=== PATIENT | female | born 1960 | race Asian ===

== ENCOUNTER 2017-06-13 19:48 | Emergency (ER) | payer MEDICAID ==
[~2017-06-13] VITALS: Ht 157.5 cm; Wt 102.0 kg
[~2017-06-13 19:48] MED LIST: CALC0.258 PO; DILT240C90 PO; FERR325T32 PO; HYDR-4069 PO; LANTUS SQ; LEVO75TA56 PO; SEVE800T8 PO; SODI650T29 PO
[2017-06-13] MEDS ORDERED: HYDROmorphone 1 mg/ml syringe IV PRN (20:15)
[2017-06-13] MEDS ORDERED: normal saline 1000ML IV soln IVB ONE (20:15)
[2017-06-13] MEDS ORDERED: ondansetron/PF 4mg/2ml inj IV ONE (20:15)
[2017-06-13 20:30] LABS: BASOPHILS % (AUTO) 0.1 % (0-1); EOSINOPHILS # (AUTO) 0.2 X10'3 (0-0.9); EOSINOPHILS % (AUTO) 2.5 % (0-6); LYMPHOCYTES # (AUTO) 0.7 X10'3 (1.1-4.8); LYMPHOCYTES % (AUTO) 7.3 % (21-51); MEAN CORPUSCULAR HEMOGLOBIN 25.9 PG (27.0-31.0); MEAN CORPUSCULAR HGB CONC 33.4 % (33.0-36.5); MEAN CORPUSCULAR VOLUME 77.4 FL (78-98); MEAN PLATELET VOLUME 6.2 FL (7.4-10.4); MONOCYTES # (AUTO) 0.4 X10'3 (0-0.9); MONOCYTES % (AUTO) 4.3 % (2-12); NEUTROPHILS # (AUTO) 8.5 X10'3 (1.8-7.7); NEUTROPHILS % (AUTO) 85.8 % (42-75); PLATELET COUNT 198 X10'3 (140-440); RED BLOOD COUNT 3.48 X10'6 (4.20-5.60); RED CELL DISTRIBUTION WIDTH 13.8 % (11.5-14.5); WHITE BLOOD COUNT 9.9 X10'3 (4.5-11.0)
[2017-06-13] MEDS ORDERED: HYDROmorphone 2mg/ml vial IV PRN (20:35)
[2017-06-13 20:46] LABS: ALANINE AMINOTRANSFERASE 16 U/L (12-78); ALBUMIN 3.2 G/DL (3.4-5.0); ALBUMIN/GLOBULIN RATIO 0.8 (1.1-1.5); ALKALINE PHOSPHATASE 67 IU/L (46-116); ANION GAP 15 (8-16); ASPARTATE AMINO TRANSFERASE 7 U/L (10-37); BILIRUBIN,TOTAL 0.3 MG/DL (0.1-1.0); BLOOD UREA NITROGEN 94 MG/DL (7-18); BUN/CREATININE RATIO 15.7 (6.6-38.0); CALCIUM 8.2 MG/DL (8.5-10.1); CHLORIDE 105 MMOL/L (99-107); GLUCOSE 212 MG/DL (70-104); LIPASE 114 U/L (73-393); POTASSIUM 4.6 MMOL/L (3.5-5.1); SODIUM 139 MMOL/L (135-145); TOTAL CARBON DIOXIDE 18.6 MMOL/L (24-32); TOTAL PROTEIN 7.3 G/DL (6.4-8.2); eGFR 7 ML/MIN
[2017-06-13] MEDS ORDERED: CefTRIAXone 2gm/NS 100ml IVPB 100 ML IV ONE (21:05)
[2017-06-13 21:44] LABS: CLARITY,URINE CLEAR (Clear); COLOR,URINE YELLOW (Yellow); GLUCOSE, URINE 100 mg/dl (Neg); KETONES,URINE NEGATIVE (Neg); LEUKOCYTE ESTERASE ,URINE SMALL (Neg); NITRITES, URINE NEGATIVE (Neg); OCCULT BLOOD,URINE TRACE-INTACT (Neg); PROTEIN,URINE 30 mg/dl (Neg); UA COLLECTION TYPE CLN CATCH MIDSTREAM; UROBILINOGEN,URINE 0.2 E.U/dL (0.2-1.0)
[2017-06-13 21:49] LABS: BACTERIA,URINE FEW /HPF (Neg); RBC,URINE 0-2 /HPF (0-2); SQUAMOUS EPITHELIAL CELL,UR MODERATE /LPF (FEW)
[2017-06-13] MEDS ORDERED: ACET-1 PO (22:13)
[2017-06-13] MEDS ORDERED: CEPH500C5 PO (22:13)
[2017-06-13] MEDS ORDERED: ONDA4TAB12 PO (22:13)
[2017-06-13 22:33] VITALS: BP 144/78
== END 2017-06-13 22:35 | disposition home or self-care (01) ==
LOC: ER 19:49
DX: N39.0 Urinary tract infection, site not specified (principal); I10 Essential (primary) hypertension; I12.9 Hypertensive chronic kidney disease with stage 1 through stage 4 chronic kidney disease, or unspecified chronic kidney disease; E11.22 Type 2 diabetes mellitus with diabetic chronic kidney disease; N18.9 Chronic kidney disease, unspecified; Z77.22 Contact with and (suspected) exposure to environmental tobacco smoke (acute) (chronic)
CPT/HCPCS: 36415; 74176; 80053; 81001; 83690; 85025; 87088; 96374; 96375; 99285; J1170; J2405; J7030; J0696

== ENCOUNTER 2018-03-31 20:15 | Inpatient (IN) | payer MEDICAID ==
[~2018-03-31] VITALS: Ht 157.5 cm; Wt 102.3 kg
[~2018-03-31 20:15] MED LIST changes: +ACET-1 PO; +CEPH500C5 PO; +CYCL-1 PO; +LIDO700A32 TOP; +ONDA4TAB12 PO
[2018-03-31 21:05] LABS: BASOPHILS % (AUTO) 0.2 % (0-1); EOSINOPHILS # (AUTO) 0.2 X10'3 (0-0.9); EOSINOPHILS % (AUTO) 1.9 % (0-6); HEMATOCRIT 29.1 % (35.0-45.0); HEMOGLOBIN 9.3 g/dl (12.0-16.0); LYMPHOCYTES # (AUTO) 0.5 X10'3 (1.1-4.8); LYMPHOCYTES % (AUTO) 4.7 % (21-51); MEAN CORPUSCULAR HEMOGLOBIN 25.5 PG (27.0-31.0); MEAN CORPUSCULAR VOLUME 79.8 FL (78-98); MEAN PLATELET VOLUME 6.3 FL (7.4-10.4); MONOCYTES # (AUTO) 0.7 X10'3 (0-0.9); MONOCYTES % (AUTO) 6.6 % (2-12); NEUTROPHILS # (AUTO) 8.8 X10'3 (1.8-7.7); NEUTROPHILS % (AUTO) 86.6 % (42-75); PLATELET COUNT 197 X10'3 (140-440); RED BLOOD COUNT 3.64 X10'6 (4.20-5.60); RED CELL DISTRIBUTION WIDTH 14.7 % (11.5-14.5); WHITE BLOOD COUNT 10.1 X10'3 (4.5-11.0)
[2018-03-31 21:14] LABS: URINE HCG NEGATIVE (NEG)
[2018-03-31 21:15] LABS: COLOR,URINE STRAW (Yellow); GLUCOSE, URINE 100 mg/dl (Neg); KETONES,URINE NEGATIVE (Neg); LEUKOCYTE ESTERASE ,URINE SMALL (Neg); NITRITES, URINE NEGATIVE (Neg); OCCULT BLOOD,URINE MODERATE (Neg); PROTEIN,URINE 30 mg/dl (Neg); UROBILINOGEN,URINE 0.2 E.U/dL (0.2-1.0)
[2018-03-31 21:19] LABS: INR 1.1 INR; PROTHROMBIN TIME 11.2 SECONDS (9.0-12.0)
[2018-03-31 21:21] LABS: ALANINE AMINOTRANSFERASE 15 U/L (12-78); ALBUMIN 3.3 G/DL (3.4-5.0); ALBUMIN/GLOBULIN RATIO 0.8 (1.1-1.5); ALKALINE PHOSPHATASE 51 IU/L (46-116); ANION GAP 15 (8-16); ASPARTATE AMINO TRANSFERASE 10 U/L (10-37); BILIRUBIN,TOTAL 0.4 MG/DL (0.1-1.0); BLOOD UREA NITROGEN 81 MG/DL (7-18); BUN/CREATININE RATIO 10.8 (6.6-38.0); CALCIUM 9.7 MG/DL (8.5-10.1); CHLORIDE 100 MMOL/L (99-107); CREATININE 7.47 MG/DL (0.40-0.90); GLUCOSE 143 MG/DL (70-104); LIPASE 87 U/L (73-393); SODIUM 136 MMOL/L (135-145); TOTAL CARBON DIOXIDE 20.6 MMOL/L (24-32); TOTAL PROTEIN 7.7 G/DL (6.4-8.2); eGFR 6 ML/MIN
[2018-03-31 21:38] LABS: CLARITY,URINE SLIGHTLY CLOUDY (Clear); UA COLLECTION TYPE CLN CATCH MIDSTREAM
[2018-03-31 21:44] LABS: MAGNESIUM 1.7 MG/DL (1.5-2.4); PHOSPHORUS 6.7 MG/DL (2.3-4.5)
[2018-03-31 21:47] LABS: SQUAMOUS EPITHELIAL CELL,UR MODERATE /LPF (FEW)
[2018-03-31 21:48] LABS: BACTERIA,URINE FEW /HPF (Neg); RBC,URINE 20-50 /HPF (0-2)
[2018-03-31] MEDS ORDERED: cephalexin 250mg capsule PO ONE (22:30)
[2018-03-31] MEDS ORDERED: CEPH250T PO (22:36)
[2018-03-31] MEDS ORDERED: CefTRIAXone/D5W-Rocephin 1gm 50 ML IV ONE (22:40)
[2018-03-31] MEDS ORDERED: MESSAGE TO PHARMACY PO ONE (23:35)
[2018-03-31] MEDS ORDERED: cyclobenzaprine 10mg tablet PO PRN (23:35)
[2018-03-31] MEDS ORDERED: dextrose ORAL solution 15 GM/59 ML bottle PO PRN ×2 (23:35)
[2018-03-31] MEDS ORDERED: mag hydrox/Alum hydrox/simeth 30ml oral suspension PO PRN (23:35)
[2018-03-31] MEDS ORDERED: glucagon, human recombinant 1mg kit SUBCUT PRN (23:35)
[2018-03-31] MEDS ORDERED: acetaminophen 325mg tablet PO PRN ×2 (23:35)
[2018-03-31] MEDS ORDERED: insulin Lispro (HumaLOG) vial - multi-dose SQ SCH (23:35)
[2018-03-31] MEDS ORDERED: ondansetron/PF 4mg/2ml inj IV PRN (23:35)
[2018-03-31] MEDS ORDERED: magnesium hydroxide 30ml (MOM) UD suspension PO PRN (23:35)
[2018-03-31] MEDS ORDERED: dextrose 50%-water 50ml dispensing syringe IV PRN ×2 (23:35)
[2018-04-01 00:01] LABS: HEMOGLOBIN A1C 5.9 % (4.5-6.2)
[2018-04-01 00:05] VITALS: BP 161/78
[2018-04-01] MEDS: normal saline 1000ml 1,000 ML IV SCH ×3 (00:21→21:23)
[2018-04-01] MEDS: HYDROcodone/acetaminophen 5mg/325mg tablet PO PRN ×2 (00:22→08:34)
[2018-04-01 05:32] LABS: BASOPHILS % (AUTO) 0.1 % (0-1); EOSINOPHILS # (AUTO) 0.1 X10'3 (0-0.9); EOSINOPHILS % (AUTO) 0.8 % (0-6); HEMATOCRIT 25.4 % (35.0-45.0); HEMOGLOBIN 8.3 g/dl (12.0-16.0); LYMPHOCYTES # (AUTO) 0.8 X10'3 (1.1-4.8); LYMPHOCYTES % (AUTO) 8.6 % (21-51); MEAN CORPUSCULAR HEMOGLOBIN 25.9 PG (27.0-31.0); MEAN CORPUSCULAR HGB CONC 32.8 % (33.0-36.5); MEAN CORPUSCULAR VOLUME 78.8 FL (78-98); MEAN PLATELET VOLUME 6.8 FL (7.4-10.4); MONOCYTES # (AUTO) 0.7 X10'3 (0-0.9); MONOCYTES % (AUTO) 7.3 % (2-12); NEUTROPHILS # (AUTO) 7.8 X10'3 (1.8-7.7); NEUTROPHILS % (AUTO) 83.2 % (42-75); PLATELET COUNT 171 X10'3 (140-440); RED BLOOD COUNT 3.22 X10'6 (4.20-5.60); RED CELL DISTRIBUTION WIDTH 14.6 % (11.5-14.5); WHITE BLOOD COUNT 9.3 X10'3 (4.5-11.0)
[2018-04-01 05:43] LABS: ALBUMIN 2.9 G/DL (3.4-5.0); ANION GAP 15 (8-16); BLOOD UREA NITROGEN 80 MG/DL (7-18); BUN/CREATININE RATIO 10.6 (6.6-38.0); CALCIUM 9.2 MG/DL (8.5-10.1); CHLORIDE 102 MMOL/L (99-107); CREATININE 7.58 MG/DL (0.40-0.90); GLUCOSE 113 MG/DL (70-104); POTASSIUM 4.9 MMOL/L (3.5-5.1); SODIUM 135 MMOL/L (135-145); TOTAL CARBON DIOXIDE 17.9 MMOL/L (24-32); eGFR 6 ML/MIN
[2018-04-01 07:30] VITALS: BP 148/85
[2018-04-01] MEDS ORDERED: LIDOcaine 5% patch TP SCH (08:00)
[2018-04-01] MEDS ORDERED: calcitriol 0.25mcg capsule PO SCH (08:00)
[2018-04-01] MEDS: CefTRIAXone/D5W-Rocephin 1gm 50 ML IV SCH (08:26)
[2018-04-01] MEDS: diltiazem CD 120mg capsule (once-daily) PO SCH (08:32)
[2018-04-01] MEDS: hydrALAZINE 25 MG tablet PO SCH ×2 (08:32→21:36)
[2018-04-01] MEDS: levoTHYROXINE 75mcg tablet PO SCH (08:32)
[2018-04-01] MEDS: sodium bicarbonate 650mg tablet PO SCH ×3 (08:33→21:36)
[2018-04-01] MEDS: sevelamer carbonate 800mg tablet PO SCH ×3 (08:33→18:38)
[2018-04-01] MEDS: ferrous sulfate 325mg tablet PO SCH ×2 (08:33→21:36)
[2018-04-01 14:10] VITALS: BP 128/57
[2018-04-01 20:00] VITALS: BP 159/62
[2018-04-01] MEDS ORDERED: insulin glargine (Lantus) pen - multi-dose SQ SCH (21:00)
[2018-04-01] MEDS: lactobacillus rhamnosus 10,000 MMU CELLS/CAPSULE PO SCH (21:36)
[2018-04-02] VITALS: BP 147/69
[2018-04-02] MEDS: normal saline 1000ml 1,000 ML IV SCH ×2 (05:31→08:57)
[2018-04-02 05:52] LABS: BASOPHILS % (AUTO) 0.1 % (0-1); EOSINOPHILS # (AUTO) 0.1 X10'3 (0-0.9); EOSINOPHILS % (AUTO) 1.3 % (0-6); HEMATOCRIT 23.7 % (35.0-45.0); HEMOGLOBIN 7.6 g/dl (12.0-16.0); LYMPHOCYTES # (AUTO) 0.7 X10'3 (1.1-4.8); LYMPHOCYTES % (AUTO) 9.8 % (21-51); MEAN CORPUSCULAR HEMOGLOBIN 25.4 PG (27.0-31.0); MEAN CORPUSCULAR HGB CONC 32.3 % (33.0-36.5); MEAN CORPUSCULAR VOLUME 78.5 FL (78-98); MEAN PLATELET VOLUME 6.7 FL (7.4-10.4); MONOCYTES # (AUTO) 0.8 X10'3 (0-0.9); NEUTROPHILS # (AUTO) 5.6 X10'3 (1.8-7.7); NEUTROPHILS % (AUTO) 77.8 % (42-75); PLATELET COUNT 153 X10'3 (140-440); RED BLOOD COUNT 3.01 X10'6 (4.20-5.60); RED CELL DISTRIBUTION WIDTH 14.5 % (11.5-14.5); WHITE BLOOD COUNT 7.2 X10'3 (4.5-11.0)
[2018-04-02 06:03] LABS: ALBUMIN 2.5 G/DL (3.4-5.0); ANION GAP 15 (8-16); BLOOD UREA NITROGEN 74 MG/DL (7-18); CALCIUM 8.4 MG/DL (8.5-10.1); CHLORIDE 103 MMOL/L (99-107); GLUCOSE 101 MG/DL (70-104); POTASSIUM 4.3 MMOL/L (3.5-5.1); SODIUM 137 MMOL/L (135-145); TOTAL CARBON DIOXIDE 18.8 MMOL/L (24-32); eGFR 6 ML/MIN
[2018-04-02 07:00] VITALS: BP 156/71
[2018-04-02] MEDS: lactobacillus rhamnosus 10,000 MMU CELLS/CAPSULE PO SCH (08:52)
[2018-04-02] MEDS: diltiazem CD 120mg capsule (once-daily) PO SCH (08:52)
[2018-04-02] MEDS: ferrous sulfate 325mg tablet PO SCH (08:52)
[2018-04-02] MEDS: hydrALAZINE 25 MG tablet PO SCH (08:52)
[2018-04-02] MEDS: sevelamer carbonate 800mg tablet PO SCH ×2 (08:53→14:24)
[2018-04-02] MEDS: sodium bicarbonate 650mg tablet PO SCH ×2 (08:53→14:24)
[2018-04-02] MEDS: levoTHYROXINE 75mcg tablet PO SCH (08:53)
[2018-04-02] MEDS: CefTRIAXone/D5W-Rocephin 1gm 50 ML IV SCH (08:55)
[2018-04-02 11:00] VITALS: BP 132/58
[2018-04-02] MEDS ORDERED: epoetin 20,000 units/ml inj SQ ONE (12:10)
== END 2018-04-02 17:45 | disposition home health service (06) | DRG 463 ==
LOC: ER 20:16 → ED HOLD 23:31 → SUR 3N 23:59
PROVIDERS: ADMIT Hospitalist; ATTEND Family Medicine
DX: N10 Acute pyelonephritis (principal); E11.22 Type 2 diabetes mellitus with diabetic chronic kidney disease; I12.0 Hypertensive chronic kidney disease with stage 5 chronic kidney disease or end stage renal disease; D64.9 Anemia, unspecified; N18.6 End stage renal disease; Q61.3 Polycystic kidney, unspecified; Z23 Encounter for immunization; Z98.51 Tubal ligation status; Z79.899 Other long term (current) drug therapy; Z79.4 Long term (current) use of insulin
CPT/HCPCS: 36415; 74176; 80048; 80053; 81001; 81025; 82948; 83036; 83690; 83735; 84100; 84443; 85025; 85610; 87070; 87088; 96374; 99285; G0378; J0696; J0885; J1815; J7030; Q2037

== ENCOUNTER 2018-06-20 13:00 | Emergency (ER) | payer MEDICAID ==
[~2018-06-20] VITALS: Ht 157.5 cm; Wt 99.8 kg
[~2018-06-20 13:00] MED LIST changes: -CEPH500C5 PO
[2018-06-20 13:01] VITALS: BP 181/79
[2018-06-20] MEDS ORDERED: GABA-532 PO (13:25)
== END 2018-06-20 13:36 | disposition home or self-care (01) ==
LOC: ER 13:01
DX: I80.3 Phlebitis and thrombophlebitis of lower extremities, unspecified (principal); I12.0 Hypertensive chronic kidney disease with stage 5 chronic kidney disease or end stage renal disease; E11.22 Type 2 diabetes mellitus with diabetic chronic kidney disease; N18.6 End stage renal disease; Z99.2 Dependence on renal dialysis; Z98.51 Tubal ligation status
CPT/HCPCS: 82948; 99283

== ENCOUNTER 2018-08-18 17:50 | Inpatient (IN) | payer MEDICAID | END 2018-08-25 14:55 | disposition home or self-care (01) | LOC: ER 17:50 → PCU 3S 08-19 08:52 → ED HOLD 21:30 ==

== ENCOUNTER 2018-12-21 19:00 | Emergency (ER) | payer MEDICAID ==
[~2018-12-21] VITALS: Ht 157.5 cm; Wt 99.2 kg
[~2018-12-21 19:00] MED LIST changes: -ACET-1 PO; -CYCL-1 PO; +DILT120T4 PO; -DILT240C90 PO; -LIDO700A32 TOP; -ONDA4TAB12 PO
[2018-12-21 19:36] LABS: BASOPHILS % (AUTO) 0.3 % (0-1); EOSINOPHILS # (AUTO) 0.1 X10'3 (0-0.9); EOSINOPHILS % (AUTO) 1.2 % (0-6); HEMATOCRIT 39.4 % (35.0-45.0); LYMPHOCYTES % (AUTO) 9.8 % (21-51); MEAN CORPUSCULAR HEMOGLOBIN 26.6 PG (27.0-31.0); MEAN CORPUSCULAR HGB CONC 32.9 g/dL (33.0-36.5); MEAN CORPUSCULAR VOLUME 80.8 FL (78-98); MEAN PLATELET VOLUME 6.6 FL (7.4-10.4); MONOCYTES # (AUTO) 0.5 X10'3 (0-0.9); MONOCYTES % (AUTO) 5.3 % (2-12); NEUTROPHILS # (AUTO) 8.4 X10'3 (1.8-7.7); NEUTROPHILS % (AUTO) 83.4 % (42-75); PLATELET COUNT 217 X10'3 (140-440); RED BLOOD COUNT 4.88 X10'6 (4.20-5.60); RED CELL DISTRIBUTION WIDTH 15.1 % (11.5-14.5); WHITE BLOOD COUNT 10.1 X10'3 (4.5-11.0)
[2018-12-21 19:39] LABS: URINE HCG NEGATIVE (NEG)
[2018-12-21 19:43] LABS: CLARITY,URINE CLEAR (Clear); COLOR,URINE YELLOW (Yellow); GLUCOSE, URINE 100 mg/dl (Neg); KETONES,URINE NEGATIVE (Neg); LEUKOCYTE ESTERASE ,URINE SMALL (Neg); NITRITES, URINE NEGATIVE (Neg); OCCULT BLOOD,URINE SMALL (Neg); PROTEIN,URINE 30 mg/dl (Neg); UROBILINOGEN,URINE 0.2 E.U/dL (0.2-1.0)
[2018-12-21 19:44] LABS: UA COLLECTION TYPE CLN CATCH MIDSTREAM
[2018-12-21 19:51] LABS: ALANINE AMINOTRANSFERASE 35 U/L (12-78); ALBUMIN 3.4 G/DL (3.4-5.0); ALBUMIN/GLOBULIN RATIO 0.7 (1.1-1.5); ALKALINE PHOSPHATASE 120 IU/L (46-116); ANION GAP 8 (8-16); ASPARTATE AMINO TRANSFERASE 21 U/L (10-37); BACTERIA,URINE FEW /HPF (Neg); BILIRUBIN,TOTAL 0.6 MG/DL (0.1-1.0); BLOOD UREA NITROGEN 18 MG/DL (7-18); BUN/CREATININE RATIO 5.8 (6.6-38.0); CALCIUM 9.3 MG/DL (8.5-10.1); CHLORIDE 96 MMOL/L (99-107); CREATININE 3.11 MG/DL (0.40-0.90); GLUCOSE 134 MG/DL (70-104); MUCUS STRANDS NONE SEEN /LPF (Neg); RBC,URINE 0-2 /HPF (0-2); RENAL CELLS, URINE FEW /HPF; SODIUM 138 MMOL/L (135-145); SQUAMOUS EPITHELIAL CELL,UR MANY /LPF (FEW); TOTAL CARBON DIOXIDE 33.6 MMOL/L (24-32); TOTAL PROTEIN 8.4 G/DL (6.4-8.2); eGFR 15 ML/MIN
--- NOTE | 2018-12-21 19:54 | NUR ---
LAB REPORTS UA REJECTED FOR CULTURE.
[2018-12-21] MEDS ORDERED: ondansetron 4mg rapidly disintigrating tab PO ONE (21:10)
[2018-12-21] MEDS ORDERED: HYDROcodone/acetaminophen 5mg/325mg tablet PO ONE (21:10)
--- NOTE | 2018-12-21 21:15 | NUR ---
pt going to ct now
[2018-12-21 22:48] VITALS: BP 104/56
[2018-12-22 01:06] LABS: CLARITY,URINE SLIGHTLY CLOUDY (Clear); COLOR,URINE YELLOW (Yellow); GLUCOSE, URINE 100 mg/dl (Neg); KETONES,URINE NEGATIVE (Neg); LEUKOCYTE ESTERASE ,URINE MODERATE (Neg); NITRITES, URINE NEGATIVE (Neg); OCCULT BLOOD,URINE SMALL (Neg); PH,URINE 8.5 (4.8-8.0); PROTEIN,URINE 100 mg/dl (Neg); UROBILINOGEN,URINE 0.2 E.U/dL (0.2-1.0)
[2018-12-22 01:18] LABS: BACTERIA,URINE 1+ /HPF (Neg); MUCUS STRANDS NONE SEEN /LPF (Neg); RBC,URINE 0-2 /HPF (0-2); RENAL CELLS, URINE FEW /HPF; SQUAMOUS EPITHELIAL CELL,UR MANY /LPF (FEW)
--- NOTE | 2018-12-22 01:18 | NUR ---
Rigo is the daughter whose cell phone number is [phone]
[2018-12-22 01:19] LABS: UA COLLECTION TYPE CLN CATCH MIDSTREAM
== END 2018-12-22 01:18 | disposition home or self-care (01) ==
LOC: ER 19:00
DX: R10.32 Left lower quadrant pain (principal); R42 Dizziness and giddiness; I12.9 Hypertensive chronic kidney disease with stage 1 through stage 4 chronic kidney disease, or unspecified chronic kidney disease; E11.22 Type 2 diabetes mellitus with diabetic chronic kidney disease; N18.9 Chronic kidney disease, unspecified; Z98.51 Tubal ligation status; Z98.890 Other specified postprocedural states; Z79.899 Other long term (current) drug therapy; Z79.4 Long term (current) use of insulin; Z99.2 Dependence on renal dialysis
CPT/HCPCS: 36415; 74176; 80053; 81001; 81025; 85025; 85610; 87088; 93005; 99284; J2405

== ENCOUNTER 2019-06-07 15:11 | Emergency (ER) | payer MEDICARE, MEDICAID ==
[~2019-06-07] VITALS: Ht 157.5 cm; Wt 103.0 kg
[2019-06-07 16:40] LABS: BASOPHILS % (AUTO) 0.6 % (0-1); EOSINOPHILS # (AUTO) 0.1 X10'3 (0-0.9); EOSINOPHILS % (AUTO) 1.5 % (0-6); HEMOGLOBIN 12.6 g/dl (12.0-16.0); LYMPHOCYTES # (AUTO) 0.9 X10'3 (1.1-4.8); LYMPHOCYTES % (AUTO) 11.6 % (21-51); MEAN CORPUSCULAR HEMOGLOBIN 27.3 PG (27.0-31.0); MEAN CORPUSCULAR HGB CONC 33.2 g/dL (33.0-36.5); MEAN CORPUSCULAR VOLUME 82.1 FL (78-98); MEAN PLATELET VOLUME 6.6 FL (7.4-10.4); MONOCYTES # (AUTO) 0.4 X10'3 (0-0.9); MONOCYTES % (AUTO) 5.1 % (2-12); NEUTROPHILS # (AUTO) 6.5 X10'3 (1.8-7.7); NEUTROPHILS % (AUTO) 81.2 % (42-75); PLATELET COUNT 196 X10'3 (140-440); RED BLOOD COUNT 4.63 X10'6 (4.20-5.60); RED CELL DISTRIBUTION WIDTH 13.4 % (11.5-14.5)
[2019-06-07 17:01] LABS: ALANINE AMINOTRANSFERASE 30 U/L (12-78); ALBUMIN 3.5 G/DL (3.4-5.0); ALBUMIN/GLOBULIN RATIO 0.7 (1.1-1.5); ALKALINE PHOSPHATASE 134 IU/L (46-116); ANION GAP 10 (8-16); ASPARTATE AMINO TRANSFERASE 16 U/L (10-37); BILIRUBIN,TOTAL 0.4 MG/DL (0.1-1.0); BLOOD UREA NITROGEN 19 MG/DL (7-18); BUN/CREATININE RATIO 5.8 (6.6-38.0); CALCIUM 9.2 MG/DL (8.5-10.1); CHLORIDE 94 MMOL/L (99-107); CREATININE 3.28 MG/DL (0.40-0.90); GLUCOSE 202 MG/DL (70-104); POTASSIUM 4.4 MMOL/L (3.5-5.1); SODIUM 132 MMOL/L (135-145); TOTAL CARBON DIOXIDE 28.1 MMOL/L (24-32); TOTAL PROTEIN 8.2 G/DL (6.4-8.2); eGFR 15 ML/MIN
[2019-06-07 19:14] VITALS: BP 115/68
== END 2019-06-07 19:15 | disposition home or self-care (01) ==
LOC: ER 15:12
DX: B34.9 Viral infection, unspecified (principal); E11.22 Type 2 diabetes mellitus with diabetic chronic kidney disease; I12.0 Hypertensive chronic kidney disease with stage 5 chronic kidney disease or end stage renal disease; N18.6 End stage renal disease; Z99.2 Dependence on renal dialysis; Z98.51 Tubal ligation status; Z98.890 Other specified postprocedural states; Z79.4 Long term (current) use of insulin; Z79.899 Other long term (current) drug therapy
CPT/HCPCS: 36415; 71045; 80053; 84484; 85025; 93005; 99284

== ENCOUNTER 2019-06-29 00:09 | Emergency (ER) | payer MEDICARE, MEDICAID ==
[~2019-06-29] VITALS: Ht 157.5 cm; Wt 103.0 kg
--- NOTE | 2019-06-29 00:36 | NUR ---
PT IS A DYALSIS PT HAS FISTULA ON HER LEFT ARM SHE GOES TO [facility] Zoran Castrejon FRI
[2019-06-29 01:49] VITALS: BP 110/66
== END 2019-06-29 01:45 | disposition home or self-care (01) ==
LOC: ER 00:09
DX: K12.0 Recurrent oral aphthae (principal); I12.9 Hypertensive chronic kidney disease with stage 1 through stage 4 chronic kidney disease, or unspecified chronic kidney disease; N18.9 Chronic kidney disease, unspecified; E11.22 Type 2 diabetes mellitus with diabetic chronic kidney disease; Z98.51 Tubal ligation status; Z98.890 Other specified postprocedural states; Z79.4 Long term (current) use of insulin; Z79.899 Other long term (current) drug therapy
CPT/HCPCS: 99281

== ENCOUNTER 2020-05-09 12:23 | Emergency (ER) | payer MEDICARE, MEDICAID ==
[~2020-05-09] VITALS: Ht 157.5 cm; Wt 107.5 kg
[2020-05-09] MEDS ORDERED: famotidine 20mg tablet PO ONE (13:20)
[2020-05-09] MEDS ORDERED: mag hydrox/Alum hydrox/simeth 30ml oral suspension PO ONE (13:20)
[2020-05-09 13:31] LABS: BASOPHILS % (AUTO) 0.4 % (0-1); EOSINOPHILS # (AUTO) 0.1 X10'3 (0-0.9); EOSINOPHILS % (AUTO) 1.1 % (0-6); HEMATOCRIT 41.9 % (35.0-45.0); HEMOGLOBIN 13.7 g/dl (12.0-16.0); LYMPHOCYTES % (AUTO) 12.8 % (21-51); MEAN CORPUSCULAR HEMOGLOBIN 26.5 PG (27.0-31.0); MEAN CORPUSCULAR HGB CONC 32.6 g/dL (33.0-36.5); MEAN CORPUSCULAR VOLUME 81.2 FL (78-98); MEAN PLATELET VOLUME 6.5 FL (7.4-10.4); MONOCYTES # (AUTO) 0.4 X10'3 (0-0.9); MONOCYTES % (AUTO) 4.5 % (2-12); NEUTROPHILS # (AUTO) 6.5 X10'3 (1.8-7.7); NEUTROPHILS % (AUTO) 81.2 % (42-75); PLATELET COUNT 199 X10'3 (140-440); RED BLOOD COUNT 5.16 X10'6 (4.20-5.60); RED CELL DISTRIBUTION WIDTH 14.7 % (11.5-14.5)
[2020-05-09 13:47] LABS: ALANINE AMINOTRANSFERASE 24 U/L (12-78); ALBUMIN 3.7 G/DL (3.4-5.0); ALBUMIN/GLOBULIN RATIO 0.8 (1.1-1.5); ALKALINE PHOSPHATASE 92 IU/L (46-116); ANION GAP 10 (8-16); ASPARTATE AMINO TRANSFERASE 16 U/L (10-37); BILIRUBIN,TOTAL 0.5 MG/DL (0.1-1.0); BLOOD UREA NITROGEN 8 MG/DL (7-18); BUN/CREATININE RATIO 3.1 (6.6-38.0); CALCIUM 9.4 MG/DL (8.5-10.1); CHLORIDE 95 MMOL/L (99-107); CREATININE 2.55 MG/DL (0.40-0.90); GLUCOSE 134 MG/DL (70-104); POTASSIUM 3.7 MMOL/L (3.5-5.1); SODIUM 135 MMOL/L (135-145); TOTAL CARBON DIOXIDE 30.4 MMOL/L (24-32); TOTAL PROTEIN 8.3 G/DL (6.4-8.2); eGFR 19 ML/MIN
[2020-05-09 18:07] VITALS: BP 116/66
== END 2020-05-09 18:06 | disposition home or self-care (01) ==
LOC: ER 12:24
DX: R07.89 Other chest pain (principal); I12.0 Hypertensive chronic kidney disease with stage 5 chronic kidney disease or end stage renal disease; E11.22 Type 2 diabetes mellitus with diabetic chronic kidney disease; N18.6 End stage renal disease; Z99.2 Dependence on renal dialysis; R06.89 Other abnormalities of breathing; Z98.51 Tubal ligation status; Z79.899 Other long term (current) drug therapy
CPT/HCPCS: 36415; 71045; 80053; 83880; 84484; 85025; 93005; 99285

== ENCOUNTER 2021-07-24 18:51 | Emergency (ER) | payer MEDICARE, MEDICAID ==
[~2021-07-24] VITALS: Ht 157.5 cm; Wt 104.5 kg
[2021-07-24] MEDS ORDERED: orphenadrine citrate 60mg/2ml inj. IM ONE (19:25)
[2021-07-24] MEDS ORDERED: morphine 4 MG/ML inj SYRINge IM ONE (19:25)
[2021-07-24 20:23] LABS: CLARITY,URINE CLOUDY (Clear); COLOR,URINE YELLOW (Yellow); GLUCOSE, URINE NEGATIVE (Neg); KETONES,URINE NEGATIVE (Neg); LEUKOCYTE ESTERASE ,URINE SMALL (Neg); NITRITES, URINE NEGATIVE (Neg); OCCULT BLOOD,URINE TRACE-INTACT (Neg); PROTEIN,URINE 100 mg/dl (Neg); UROBILINOGEN,URINE 0.2 E.U/dL (0.2-1.0)
[2021-07-24 20:32] LABS: UA COLLECTION TYPE CLN CATCH MIDSTREAM
[2021-07-24 20:35] LABS: BACTERIA,URINE 3+ /HPF (Neg); MUCUS STRANDS FEW /LPF (Neg); RBC,URINE 0-2 /HPF (0-2); SQUAMOUS EPITHELIAL CELL,UR MANY /LPF (FEW)
[2021-07-24 20:37] LABS: TRANSITIONAL EPI CELLS,URINE FEW /HPF
[2021-07-24 21:24] LABS: CLARITY,URINE SLIGHTLY CLOUDY (Clear); COLOR,URINE YELLOW (Yellow); GLUCOSE, URINE NEGATIVE (Neg); KETONES,URINE NEGATIVE (Neg); LEUKOCYTE ESTERASE ,URINE SMALL (Neg); NITRITES, URINE NEGATIVE (Neg); OCCULT BLOOD,URINE TRACE-INTACT (Neg); PH,URINE 8.5 (4.8-8.0); PROTEIN,URINE 100 mg/dl (Neg); UROBILINOGEN,URINE 0.2 E.U/dL (0.2-1.0)
[2021-07-24 21:29] LABS: UA COLLECTION TYPE STRAIGHT CATH
[2021-07-24 21:33] LABS: BACTERIA,URINE 2+ /HPF (Neg); MUCUS STRANDS FEW /LPF (Neg); RBC,URINE 0-2 /HPF (0-2); SQUAMOUS EPITHELIAL CELL,UR MODERATE /LPF (FEW)
[2021-07-24 21:34] LABS: TRANSITIONAL EPI CELLS,URINE FEW /HPF
[2021-07-24] MEDS ORDERED: cephalexin 250mg capsule PO ONE (21:45)
[2021-07-24] MEDS ORDERED: CEPH-585 PO (21:53)
[2021-07-24] MEDS ORDERED: HYDR-3972 PO (21:56)
[2021-07-24 21:59] VITALS: BP 140/68
== END 2021-07-24 22:06 | disposition home or self-care (01) ==
LOC: ER 18:51
DX: M54.50 Low back pain, unspecified (principal); I12.0 Hypertensive chronic kidney disease with stage 5 chronic kidney disease or end stage renal disease; E11.22 Type 2 diabetes mellitus with diabetic chronic kidney disease; N18.6 End stage renal disease; Z99.2 Dependence on renal dialysis; Z98.51 Tubal ligation status; Z98.890 Other specified postprocedural states; Z79.899 Other long term (current) drug therapy
CPT/HCPCS: 72100; 81001; 87088; 96372; 99284; J2270; J2360

== ENCOUNTER 2023-03-26 19:08 | Emergency (ER) | payer MEDICARE, MEDICAID ==
[~2023-03-26] VITALS: Ht 157.5 cm; Wt 100.0 kg
[~2023-03-26 19:08] MED LIST changes: -CALC0.258 PO; +CLOT15CR73 TOP; -DILT120T4 PO; +DILT180C49 PO; -FERR325T32 PO; -HYDR-4069 PO; -LANTUS SQ; +LEVO50TA8 PO; -LEVO75TA56 PO; +SODI10PO PO; -SODI650T29 PO; +VIT1TABL50 PO
[2023-03-26 19:24] VITALS: TEMP 99.8
[2023-03-26 20:07] LABS: BASOPHILS % (AUTO) 0.5 % (0-1); EOSINOPHILS # (AUTO) 0.1 X10'3 (0-0.9); EOSINOPHILS % (AUTO) 1.3 % (0-6); HEMOGLOBIN 10.1 g/dl (12.0-16.0); LYMPHOCYTES % (AUTO) 12.2 % (21-51); MEAN CORPUSCULAR HEMOGLOBIN 26.1 PG (27.0-31.0); MEAN CORPUSCULAR HGB CONC 32.5 g/dL (33.0-36.5); MEAN CORPUSCULAR VOLUME 80.3 FL (78-98); MEAN PLATELET VOLUME 6.8 FL (7.4-10.4); MONOCYTES # (AUTO) 0.8 X10'3 (0-0.9); MONOCYTES % (AUTO) 9.3 % (2-12); NEUTROPHILS # (AUTO) 6.5 X10'3 (1.8-7.7); NEUTROPHILS % (AUTO) 76.7 % (42-75); PLATELET COUNT 224 X10'3 (140-440); RED BLOOD COUNT 3.86 X10'6 (4.20-5.60); RED CELL DISTRIBUTION WIDTH 13.6 % (11.5-14.5); WHITE BLOOD COUNT 8.5 X10'3 (4.5-11.0)
[2023-03-26 20:21] LABS: ALANINE AMINOTRANSFERASE 12 U/L (12-78); ALBUMIN 2.7 G/DL (3.4-5.0); ALBUMIN/GLOBULIN RATIO 0.6 (1.1-1.5); ALKALINE PHOSPHATASE 129 IU/L (46-116); ANION GAP 6 (8-16); ASPARTATE AMINO TRANSFERASE 14 U/L (10-37); BILIRUBIN,TOTAL 0.4 MG/DL (0.1-1.0); BLOOD UREA NITROGEN 19 MG/DL (7-18); BUN/CREATININE RATIO 6.2 (10.0-20.0); CALCIUM 9.9 MG/DL (8.5-10.1); CHLORIDE 93 MMOL/L (99-107); CREATININE 3.08 MG/DL (0.40-0.90); GLUCOSE 251 MG/DL (70-104); LIPASE 19 U/L (16-77); POTASSIUM 4.1 MMOL/L (3.5-5.1); SODIUM 132 MMOL/L (135-145); TOTAL CARBON DIOXIDE 33.5 MMOL/L (24-32); TOTAL PROTEIN 7.5 G/DL (6.4-8.2); eCRCL 15 ML/MIN; eGFR 15 ML/MIN
[2023-03-26 21:33] LABS: BILIRUBIN,URINE NEGATIVE (Neg); CLARITY,URINE SLIGHTLY CLOUDY (Clear); COLOR,URINE STRAW (Yellow); GLUCOSE, URINE 100 mg/dl (Neg); KETONES,URINE NEGATIVE (Neg); LEUKOCYTE ESTERASE ,URINE SMALL (Neg); NITRITES, URINE NEGATIVE (Neg); OCCULT BLOOD,URINE SMALL (Neg); PH,URINE 8.5 (4.8-8.0); PROTEIN,URINE 100 mg/dl (Neg); UROBILINOGEN,URINE 0.2 E.U/dL (0.2-1.0)
[2023-03-26 21:36] LABS: UA COLLECTION TYPE CLN CATCH MIDSTREAM
[2023-03-26 21:49] LABS: BACTERIA,URINE 2+ /HPF (Neg); MUCUS STRANDS NONE SEEN /LPF (Neg); SQUAMOUS EPITHELIAL CELL,UR MANY /LPF (FEW); TRANSITIONAL EPI CELLS,URINE FEW /HPF
[2023-03-26] MEDS ORDERED: ondansetron/PF 4mg/2ml inj IV ONE (23:35)
[2023-03-26] MEDS ORDERED: morphine 4 MG/ML inj SYRINge IV PRN (23:35)
[2023-03-26] MEDS ORDERED: CefTRIAXone/D5W-Rocephin 1gm 50 ML IV ONE (23:35)
[2023-03-27 01:41] VITALS: BP 126/55; PULSE 79; O2SAT 93
[2023-03-27 02:34] VITALS: RESP 18
[2023-03-27] MEDS ORDERED: HYDR-3965 PO (03:07)
[2023-03-27] MEDS ORDERED: CEPH-585 PO (03:07)
--- NOTE | 2023-03-27 04:43 | NUR ---
I have reviewed and agree with all interventions, assessments performed and documented by GREG Sterling.
== END 2023-03-27 03:34 | disposition home or self-care (01) ==
LOC: ER 19:09
DX: K80.51 Calculus of bile duct without cholangitis or cholecystitis with obstruction (principal); N39.0 Urinary tract infection, site not specified; N18.9 Chronic kidney disease, unspecified; I10 Essential (primary) hypertension; E11.9 Type 2 diabetes mellitus without complications; E03.9 Hypothyroidism, unspecified
CPT/HCPCS: 36415; 74176; 76700; 80053; 81001; 83690; 85025; 96365; 96366; 96375; 99285; J0696; J2270; J2405

== ENCOUNTER 2023-04-25 19:24 | Emergency (ER) | payer MEDICARE, MEDICAID ==
[~2023-04-25] VITALS: Ht 152.4 cm; Wt 99.9 kg
[~2023-04-25 19:24] MED LIST changes: +HYDR-3965 PO
[2023-04-25 20:19] LABS: BASOPHILS % (AUTO) 0.4 % (0-1); EOSINOPHILS # (AUTO) 0.1 X10'3 (0-0.9); EOSINOPHILS % (AUTO) 1.4 % (0-6); HEMATOCRIT 30.4 % (35.0-45.0); LYMPHOCYTES # (AUTO) 1.1 X10'3 (1.1-4.8); LYMPHOCYTES % (AUTO) 12.6 % (21-51); MEAN CORPUSCULAR HEMOGLOBIN 26.8 PG (27.0-31.0); MEAN CORPUSCULAR HGB CONC 32.9 g/dL (33.0-36.5); MEAN CORPUSCULAR VOLUME 81.3 FL (78-98); MEAN PLATELET VOLUME 6.9 FL (7.4-10.4); MONOCYTES # (AUTO) 0.6 X10'3 (0-0.9); MONOCYTES % (AUTO) 6.9 % (2-12); NEUTROPHILS # (AUTO) 6.6 X10'3 (1.8-7.7); NEUTROPHILS % (AUTO) 78.7 % (42-75); PLATELET COUNT 192 X10'3 (140-440); RED BLOOD COUNT 3.73 X10'6 (4.20-5.60); RED CELL DISTRIBUTION WIDTH 15.4 % (11.5-14.5); WHITE BLOOD COUNT 8.5 X10'3 (4.5-11.0)
[2023-04-25 20:21] LABS: BILIRUBIN,URINE NEGATIVE (Neg); CLARITY,URINE CLOUDY (Clear); COLOR,URINE STRAW (Yellow); GLUCOSE, URINE 100 mg/dl (Neg); KETONES,URINE NEGATIVE (Neg); LEUKOCYTE ESTERASE ,URINE NEGATIVE (Neg); NITRITES, URINE NEGATIVE (Neg); OCCULT BLOOD,URINE SMALL (Neg); PH,URINE 8.5 (4.8-8.0); PROTEIN,URINE 100 mg/dl (Neg); UROBILINOGEN,URINE 0.2 E.U/dL (0.2-1.0)
[2023-04-25 20:28] LABS: UA COLLECTION TYPE CLN CATCH MIDSTREAM
[2023-04-25 20:29] LABS: SQUAMOUS EPITHELIAL CELL,UR MANY /LPF (FEW); TRANSITIONAL EPI CELLS,URINE FEW /HPF
[2023-04-25 20:30] LABS: BACTERIA,URINE 3+ /HPF (Neg)
[2023-04-25 20:47] LABS: ALANINE AMINOTRANSFERASE 14 U/L (12-78); ALBUMIN 2.9 G/DL (3.4-5.0); ALBUMIN/GLOBULIN RATIO 0.6 (1.1-1.5); ALKALINE PHOSPHATASE 97 IU/L (46-116); ANION GAP 7 (8-16); ASPARTATE AMINO TRANSFERASE 12 U/L (10-37); BILIRUBIN,TOTAL 0.4 MG/DL (0.1-1.0); BLOOD UREA NITROGEN 16 MG/DL (7-18); BUN/CREATININE RATIO 5.2 (10.0-20.0); CALCIUM 9.6 MG/DL (8.5-10.1); CHLORIDE 94 MMOL/L (99-107); CREATININE 3.09 MG/DL (0.40-0.90); GLUCOSE 239 MG/DL (70-104); LIPASE 25 U/L (16-77); SODIUM 133 MMOL/L (135-145); TOTAL CARBON DIOXIDE 32.3 MMOL/L (24-32); TOTAL PROTEIN 7.8 G/DL (6.4-8.2); eCRCL 14 ML/MIN; eGFR 15 ML/MIN
[2023-04-25] MEDS ORDERED: FOSFOMYCIN TROMETHAMINE 3 GM PACKET PO ONE (21:05)
[2023-04-25 21:29] VITALS: BP 160/71; PULSE 84; RESP 16; TEMP 98.4; O2SAT 98
== END 2023-04-25 21:30 | disposition home or self-care (01) ==
LOC: ER 19:25
DX: N39.0 Urinary tract infection, site not specified (principal); I12.0 Hypertensive chronic kidney disease with stage 5 chronic kidney disease or end stage renal disease; N18.6 End stage renal disease; Z99.2 Dependence on renal dialysis; Z98.51 Tubal ligation status; Z98.890 Other specified postprocedural states; Z79.899 Other long term (current) drug therapy
CPT/HCPCS: 36415; 80053; 81001; 83605; 83690; 83735; 84145; 85025; 99283

== ENCOUNTER 2023-05-26 15:18 | Emergency (ER) | payer MEDICARE, MEDICAID ==
[~2023-05-26] VITALS: Ht 157.5 cm; Wt 99.1 kg
[~2023-05-26 15:18] MED LIST changes: -HYDR-3965 PO
[2023-05-26 15:44] VITALS: BP 151/53; PULSE 61; RESP 16; TEMP 98; O2SAT 97
== END 2023-05-26 21:11 | disposition left against medical advice (07) ==
LOC: ER 15:19
DX: R10.2 Pelvic and perineal pain (principal); Z53.21 Procedure and treatment not carried out due to patient leaving prior to being seen by health care provider
CPT/HCPCS: 99281

== ENCOUNTER 2023-07-02 12:27 | Outpatient (CLI) | payer MEDICARE, MEDICAID, OTHER ==
[~2023-07-02 12:27] MED LIST changes: +BISA10SU11 RC; -CLOT15CR73 TOP; +D50SYR IV; +DOCU100C40 PO; +FOLI1CAP7 PO; +GLUC1KIT2 SUBCUT; +HYDR-3973 PO; +INSU100V11 SQ; +LANTUS SQ; +LINE600T14 PO; +PHO667C PO; -VIT1TABL50 PO
== END 2023-07-02 23:59 | disposition home or self-care (01) ==
LOC: RAD 12:27
PROVIDERS: ATTEND Internal Medicine
DX: K57.30 Diverticulosis of large intestine without perforation or abscess without bleeding (principal); K80.20 Calculus of gallbladder without cholecystitis without obstruction; K76.89 Other specified diseases of liver; J90 Pleural effusion, not elsewhere classified; E01.0 Iodine-deficiency related diffuse (endemic) goiter; R16.0 Hepatomegaly, not elsewhere classified; N28.1 Cyst of kidney, acquired; I70.0 Atherosclerosis of aorta; R93.89 Abnormal findings on diagnostic imaging of other specified body structures
CPT/HCPCS: 74176

== ENCOUNTER 2023-07-27 12:55 | Inpatient (IN) | payer MEDICARE, MEDICAID, OTHER ==
[~2023-07-27] VITALS: Ht 157.5 cm; Wt 98.1 kg
[~2023-07-27 12:55] MED LIST changes: -HYDR-3973 PO; +diltiazem-NS 100mg/100ml 100 ML IV PRN
[2023-07-27] MEDS: heparin 10,000 units/1 ML INJ IV ONE (13:30)
[2023-07-27] MEDS: diltiazem 5mg/ml 5ml inj. IV ONE (13:47)
[2023-07-27] MEDS: diltiazem-NS 100mg/100ml 100 ML IV PRN (13:48)
[2023-07-27 14:09] LABS: BASOPHILS # (AUTO) 0.1 X10'3 (0-0.2); BASOPHILS % (AUTO) 0.9 % (0-1); EOSINOPHILS # (AUTO) 0.1 X10'3 (0-0.9); EOSINOPHILS % (AUTO) 1.5 % (0-6); HEMATOCRIT 36.6 % (35.0-45.0); HEMOGLOBIN 11.2 g/dl (12.0-16.0); LYMPHOCYTES # (AUTO) 1.2 X10'3 (1.1-4.8); LYMPHOCYTES % (AUTO) 14.7 % (21-51); MEAN CORPUSCULAR HEMOGLOBIN 25.8 PG (27.0-31.0); MEAN CORPUSCULAR HGB CONC 30.7 g/dL (33.0-36.5); MEAN CORPUSCULAR VOLUME 84.1 FL (78-98); MEAN PLATELET VOLUME 7.5 FL (7.4-10.4); MONOCYTES # (AUTO) 0.5 X10'3 (0-0.9); MONOCYTES % (AUTO) 6.4 % (2-12); NEUTROPHILS # (AUTO) 6.3 X10'3 (1.8-7.7); NEUTROPHILS % (AUTO) 76.5 % (42-75); PLATELET COUNT 183 X10'3 (140-440); RED BLOOD COUNT 4.35 X10'6 (4.20-5.60); RED CELL DISTRIBUTION WIDTH 19.3 % (11.5-14.5); WHITE BLOOD COUNT 8.3 X10'3 (4.5-11.0)
[2023-07-27 14:23] LABS: ANION GAP 9 (8-16); BLOOD UREA NITROGEN 14 MG/DL (7-18); BUN/CREATININE RATIO 3.7 (10.0-20.0); CALCIUM 9.7 MG/DL (8.5-10.1); CHLORIDE 97 MMOL/L (99-107); CREATININE 3.78 MG/DL (0.40-0.90); GLUCOSE 125 MG/DL (70-104); POTASSIUM 3.9 MMOL/L (3.5-5.1); SODIUM 139 MMOL/L (135-145); TOTAL CARBON DIOXIDE 33.4 MMOL/L (24-32); eCRCL 13 ML/MIN; eGFR 12 ML/MIN
[2023-07-27 14:45] LABS: PLATELET ESTIMATE NORMAL
[2023-07-27 14:51] LABS: ANISOCYTOSIS 2+; POIKILOCYTOSIS FEW; STOMATOCYTES FEW
[2023-07-27 15:31] LABS: APTT 35 SECONDS (22-32); INR 1.2 INR; PROTHROMBIN TIME 12.6 SECONDS (9.0-12.0)
[2023-07-27] MEDS: amiodarone 150mg/dext, iso-os 100 ML IV ONE (16:49)
[2023-07-27] MEDS ORDERED: magnesium hydroxide 30ml (MOM) UD suspension PO PRN (17:10)
[2023-07-27] MEDS ORDERED: ondansetron/PF 4mg/2ml inj IV PRN (17:10)
[2023-07-27] MEDS ORDERED: mag hydrox/Alum hydrox/simeth 30ml oral suspension PO PRN (17:10)
[2023-07-27] MEDS: amiodarone/D5 360MG/200ML BAG 200 ML IV ONE (17:13)
[2023-07-27] MEDS ORDERED: dextrose 50%-water 50ml dispensing syringe IV PRN ×2 (17:50)
[2023-07-27] MEDS ORDERED: insulin Lispro (HumaLOG) vial - multi-dose SQ SCH (17:50)
[2023-07-27] MEDS ORDERED: DEXTROSE 15 GM of carb/4 tabs (each vial/BOTTLE has 4 tablets) PO PRN ×2 (17:50)
[2023-07-27] MEDS ORDERED: glucagon, human recombinant 1mg kit SUBCUT PRN (17:50)
[2023-07-27] MEDS: MESSAGE TO PHARMACY PO ONE (18:27)
[2023-07-27] MEDS: docusate sod 100mg capsule PO SCH (20:00)
[2023-07-27] MEDS: insulin glargine (Lantus) pen - multi-dose SQ SCH (21:00)
[2023-07-27] MEDS ORDERED: diltiazem-NS 100mg/100ml 100 ML IV PRN (21:25)
[2023-07-27] MEDS ORDERED: diltiazem-NS 100mg/100ml 100 ML IV SCH (22:10)
[2023-07-27 23:30] VITALS: BP 118/89; PULSE 132; RESP 13; TEMP 97.1; O2SAT 98
[2023-07-28] VITALS (39 sets, daily range): BP systolic 88–126; BP diastolic 49–100; PULSE 102–146; RESP 13–24; TEMP 97.1–98.1; O2SAT 94–100
[2023-07-28] MEDS: amiodarone/D5 360MG/200ML BAG 200 ML IV SCH (00:10)
[2023-07-28] MEDS: heparin, porcine 5000 units/ml vial SQ SCH (00:20)
[2023-07-28] MEDS ORDERED: diltiazem-NS 100mg/100ml 100 ML IV PRN ×3 (01:43→04:00)
[2023-07-28] MEDS: acetaminophen 325mg tablet PO PRN (01:47)
[2023-07-28] MEDS: diltiazem-NS 100mg/100ml 100 ML IV PRN (02:24)
[2023-07-28] MEDS: levoTHYROXINE 75mcg tablet PO SCH (09:03)
[2023-07-28 10:05] LABS: BASOPHILS # (AUTO) 0.1 X10'3 (0-0.2); BASOPHILS % (AUTO) 0.7 % (0-1); EOSINOPHILS # (AUTO) 0.1 X10'3 (0-0.9); EOSINOPHILS % (AUTO) 1.9 % (0-6); HEMATOCRIT 31.6 % (35.0-45.0); HEMOGLOBIN 9.8 g/dl (12.0-16.0); LYMPHOCYTES # (AUTO) 1.1 X10'3 (1.1-4.8); MEAN CORPUSCULAR HGB CONC 31.1 g/dL (33.0-36.5); MEAN CORPUSCULAR VOLUME 83.8 FL (78-98); MEAN PLATELET VOLUME 7.4 FL (7.4-10.4); MONOCYTES # (AUTO) 0.5 X10'3 (0-0.9); MONOCYTES % (AUTO) 6.3 % (2-12); NEUTROPHILS # (AUTO) 5.6 X10'3 (1.8-7.7); NEUTROPHILS % (AUTO) 76.1 % (42-75); PLATELET COUNT 150 X10'3 (140-440); RED BLOOD COUNT 3.76 X10'6 (4.20-5.60); WHITE BLOOD COUNT 7.4 X10'3 (4.5-11.0)
[2023-07-28 10:22] LABS: APTT 38 SECONDS (22-32); INR 1.2 INR
[2023-07-28 10:43] LABS: PROTHROMBIN TIME 12.7 SECONDS (9.0-12.0)
[2023-07-28 11:05] LABS: ALANINE AMINOTRANSFERASE 6 U/L (12-78); ALBUMIN 1.6 G/DL (3.4-5.0); ALBUMIN/GLOBULIN RATIO 0.4 (1.1-1.5); ALKALINE PHOSPHATASE 119 IU/L (46-116); ANION GAP 5 (8-16); ASPARTATE AMINO TRANSFERASE 16 U/L (10-37); BILIRUBIN,TOTAL 0.2 MG/DL (0.1-1.0); BLOOD UREA NITROGEN 17 MG/DL (7-18); BUN/CREATININE RATIO 3.9 (10.0-20.0); CALCIUM 9.3 MG/DL (8.5-10.1); CHLORIDE 100 MMOL/L (99-107); CREATININE 4.36 MG/DL (0.40-0.90); FREE T4 (FREE THYROXINE) 1.39 NG/DL (0.73-1.40); GLUCOSE 163 MG/DL (70-104); MAGNESIUM 1.9 MG/DL (1.5-2.4); POTASSIUM 4.2 MMOL/L (3.5-5.1); SODIUM 137 MMOL/L (135-145); THYROID STIMULATING HORMONE 2.21 ulU/ml (0.34-4.50); TOTAL CARBON DIOXIDE 31.7 MMOL/L (24-32); TOTAL PROTEIN 5.7 G/DL (6.4-8.2); eCRCL 11 ML/MIN; eGFR 10 ML/MIN
[2023-07-28] MEDS: apixaban 5mg tablet PO SCH (12:02)
[2023-07-28] MEDS: diltiazem CD 180mg cap (once-daily) PO SCH (12:02)
[2023-07-28] MEDS ORDERED: normal saline 1000ml 250 ML IV PRN (12:35)
[2023-07-28] MEDS ORDERED: normal saline 1000ml 100 ML IV PRN (12:35)
[2023-07-28] MEDS: LIDOcaine 1% (10mg/ml) 2ml vial SQ ONE (13:30)
[2023-07-28] MEDS ORDERED: digoxin 250mcg/ml 2ml ampule IV ONE (13:50)
[2023-07-28] MEDS: EPOETIN ALFA-EPBX 20,000 UNIT/ML 1 ML MDV IV ONE (16:10)
[2023-07-28] MEDS: diltiazem 30mg tablet PO SCH (19:30)
[2023-07-28] MEDS ORDERED: digoxin 250mcg/ml 2ml ampule IV SCH (20:00)
[2023-07-28] MEDS: diltiazem 30mg tablet PO ONE (22:30)
[2023-07-29] VITALS (20 sets, daily range): BP systolic 101–126; BP diastolic 51–82; PULSE 8–169; RESP 16–33; TEMP 97.5–98.3; O2SAT 90–99
[2023-07-29 07:48] LABS: BASOPHILS % (AUTO) 0.5 % (0-1); EOSINOPHILS # (AUTO) 0.1 X10'3 (0-0.9); EOSINOPHILS % (AUTO) 1.2 % (0-6); HEMATOCRIT 30.9 % (35.0-45.0); HEMOGLOBIN 9.7 g/dl (12.0-16.0); LYMPHOCYTES # (AUTO) 1.2 X10'3 (1.1-4.8); LYMPHOCYTES % (AUTO) 14.6 % (21-51); MEAN CORPUSCULAR HEMOGLOBIN 26.1 PG (27.0-31.0); MEAN CORPUSCULAR HGB CONC 31.3 g/dL (33.0-36.5); MEAN CORPUSCULAR VOLUME 83.4 FL (78-98); MEAN PLATELET VOLUME 7.6 FL (7.4-10.4); MONOCYTES # (AUTO) 0.5 X10'3 (0-0.9); NEUTROPHILS # (AUTO) 6.5 X10'3 (1.8-7.7); NEUTROPHILS % (AUTO) 77.7 % (42-75); PLATELET COUNT 162 X10'3 (140-440); RED BLOOD COUNT 3.71 X10'6 (4.20-5.60); RED CELL DISTRIBUTION WIDTH 18.6 % (11.5-14.5); WHITE BLOOD COUNT 8.3 X10'3 (4.5-11.0)
[2023-07-29 08:13] LABS: APTT 38 SECONDS (22-32); INR 1.2 INR; PROTHROMBIN TIME 12.4 SECONDS (9.0-12.0)
[2023-07-29 08:18] LABS: ALBUMIN 1.5 G/DL (3.4-5.0); ALBUMIN/GLOBULIN RATIO 0.4 (1.1-1.5); ALKALINE PHOSPHATASE 126 IU/L (46-116); ANION GAP 6 (8-16); ASPARTATE AMINO TRANSFERASE 13 U/L (10-37); BILIRUBIN,TOTAL 0.3 MG/DL (0.1-1.0); BLOOD UREA NITROGEN 10 MG/DL (7-18); BUN/CREATININE RATIO 3.4 (10.0-20.0); CALCIUM 8.5 MG/DL (8.5-10.1); CHLORIDE 102 MMOL/L (99-107); CREATININE 2.97 MG/DL (0.40-0.90); GLUCOSE 110 MG/DL (70-104); MAGNESIUM 1.9 MG/DL (1.5-2.4); PHOSPHORUS 2.6 MG/DL (2.3-4.5); SODIUM 137 MMOL/L (135-145); TOTAL PROTEIN 5.6 G/DL (6.4-8.2); eCRCL 16 ML/MIN; eGFR 16 ML/MIN
[2023-07-29 08:30] LABS: ALANINE AMINOTRANSFERASE < 6 U/L (12-78)
[2023-07-29] MEDS: diltiazem 30mg tablet PO ONE (10:01)
[2023-07-29] MEDS: fentaNYL/PF 50MCG/1 ML 2ML syringe IV ONE (11:30)
[2023-07-29] MEDS: MIDAZolam 1mg/ml 10ml vial IV ONE (11:30)
[2023-07-29] MEDS: apixaban 5mg tablet PO ONE (12:00)
[2023-07-29] MEDS: calcium acetate 667mg (PhosLO) capsule PO SCH (13:00)
[2023-07-29] MEDS ORDERED: sevelamer carbonate 800mg tablet PO SCH (13:00)
[2023-07-29] MEDS: diltiazem 30mg tablet PO SCH (13:03)
[2023-07-29] MEDS ORDERED: ondansetron 4mg rapidly disintigrating tab PO PRN (15:05)
[2023-07-29] MEDS ORDERED: heparin, porcine 5000 units/ml vial SQ SCH (16:00)
[2023-07-29] MEDS: apixaban 5mg tablet PO SCH (19:37)
[2023-07-29] MEDS: amiodarone 200mg tablet PO SCH (19:37)
[2023-07-30] VITALS (13 sets, daily range): BP systolic 97–125; BP diastolic 48–67; PULSE 70–79; RESP 13–23; TEMP 97.2–97.7; O2SAT 95–100
[2023-07-30 07:22] LABS: BASOPHILS % (AUTO) 0.6 % (0-1); EOSINOPHILS # (AUTO) 0.1 X10'3 (0-0.9); EOSINOPHILS % (AUTO) 1.9 % (0-6); HEMATOCRIT 30.2 % (35.0-45.0); HEMOGLOBIN 9.6 g/dl (12.0-16.0); LYMPHOCYTES # (AUTO) 1.1 X10'3 (1.1-4.8); LYMPHOCYTES % (AUTO) 16.1 % (21-51); MEAN CORPUSCULAR HEMOGLOBIN 26.1 PG (27.0-31.0); MEAN CORPUSCULAR HGB CONC 31.6 g/dL (33.0-36.5); MEAN CORPUSCULAR VOLUME 82.6 FL (78-98); MEAN PLATELET VOLUME 7.7 FL (7.4-10.4); MONOCYTES # (AUTO) 0.5 X10'3 (0-0.9); MONOCYTES % (AUTO) 7.2 % (2-12); NEUTROPHILS # (AUTO) 4.9 X10'3 (1.8-7.7); NEUTROPHILS % (AUTO) 74.2 % (42-75); PLATELET COUNT 164 X10'3 (140-440); RED BLOOD COUNT 3.66 X10'6 (4.20-5.60); RED CELL DISTRIBUTION WIDTH 18.6 % (11.5-14.5); WHITE BLOOD COUNT 6.7 X10'3 (4.5-11.0)
[2023-07-30] MEDS ORDERED: normal saline 1000ml 250 ML IV PRN (07:35)
[2023-07-30] MEDS: LIDOcaine 1% (10mg/ml) 2ml vial SQ ONE (07:35)
[2023-07-30 07:36] LABS: ALANINE AMINOTRANSFERASE 7 U/L (12-78); ALBUMIN 1.5 G/DL (3.4-5.0); ALBUMIN/GLOBULIN RATIO 0.4 (1.1-1.5); ALKALINE PHOSPHATASE 125 IU/L (46-116); ANION GAP 3 (8-16); ASPARTATE AMINO TRANSFERASE 12 U/L (10-37); BILIRUBIN,TOTAL 0.3 MG/DL (0.1-1.0); BLOOD UREA NITROGEN 15 MG/DL (7-18); BUN/CREATININE RATIO 3.8 (10.0-20.0); CALCIUM 8.9 MG/DL (8.5-10.1); CHLORIDE 102 MMOL/L (99-107); CREATININE 3.92 MG/DL (0.40-0.90); GLUCOSE 90 MG/DL (70-104); MAGNESIUM 1.7 MG/DL (1.5-2.4); PHOSPHORUS 3.3 MG/DL (2.3-4.5); POTASSIUM 4.2 MMOL/L (3.5-5.1); SODIUM 136 MMOL/L (135-145); TOTAL CARBON DIOXIDE 30.6 MMOL/L (24-32); TOTAL PROTEIN 5.4 G/DL (6.4-8.2); eCRCL 12 ML/MIN; eGFR 12 ML/MIN
[2023-07-30 07:40] LABS: APTT 39 SECONDS (22-32); INR 1.3 INR; PROTHROMBIN TIME 13.3 SECONDS (9.0-12.0)
[2023-07-30] MEDS: folic acid/vitamin B complex w/vitamin C 0.8mg tablet PO SCH (07:52)
[2023-07-30 07:53] LABS: PLATELET ESTIMATE NORMAL
[2023-07-30 07:54] LABS: HYPOCHROMASIA 1+; STOMATOCYTES FEW; TARGET CELLS FEW
[2023-07-30] MEDS ORDERED: digoxin 250mcg/ml 2ml ampule IV SCH (08:00)
[2023-07-30] MEDS: EPOETIN ALFA-EPBX 20,000 UNIT/ML 1 ML MDV IV ONE (09:22)
[2023-07-30] MEDS: heparin 1,000 units/ml 10ml inj IV ONE (09:39)
[2023-07-31 08:21] LABS: HBSAG SCREEN SEE COMMENTS
== END 2023-07-30 17:15 | DRG 308 ==
LOC: ER 12:56 → ED HOLD 17:15 → PCU 3S 23:20
PROVIDERS: ADMIT Internal Medicine; ATTEND Internal Medicine
PROC: 5A1D70Z Performance of Urinary Filtration, Intermittent, Less than 6 Hours Per Day (ICD-10-PCS; 2023-07-28)
PROC: 5A2204Z Restoration of Cardiac Rhythm, Single (ICD-10-PCS; principal; 2023-07-29)
PROC: B24BZZ4 Ultrasonography of Heart with Aorta, Transesophageal (ICD-10-PCS; 2023-07-29)
PROC: 5A1D70Z Performance of Urinary Filtration, Intermittent, Less than 6 Hours Per Day (ICD-10-PCS; 2023-07-30)
DX: I48.0 Paroxysmal atrial fibrillation (principal); N18.6 End stage renal disease; J98.11 Atelectasis; N17.9 Acute kidney failure, unspecified; I12.0 Hypertensive chronic kidney disease with stage 5 chronic kidney disease or end stage renal disease; Q61.3 Polycystic kidney, unspecified; Z16.21 Resistance to vancomycin; E11.22 Type 2 diabetes mellitus with diabetic chronic kidney disease; E03.9 Hypothyroidism, unspecified; D64.9 Anemia, unspecified; Z99.2 Dependence on renal dialysis; Z98.51 Tubal ligation status; Z90.49 Acquired absence of other specified parts of digestive tract; Z79.4 Long term (current) use of insulin; Z79.899 Other long term (current) drug therapy; Z82.49 Family history of ischemic heart disease and other diseases of the circulatory system
CPT/HCPCS: 36415; 71045; 80048; 80053; 82948; 83605; 83735; 84100; 84145; 84439; 84443; 84484; 85008; 85025; 85610; 85730; 87040; 87081; 87340; 93005; 99291; A4615; E1594; G0257; G0378; J0282; J1644; J1815; J2250; J3010; J3490; J7030; Q4081

== ENCOUNTER 2024-03-14 16:57 | Emergency (ER) | payer MEDICARE, MEDICAID ==
[~2024-03-14] VITALS: Ht 152.4 cm; Wt 89.6 kg
[~2024-03-14 16:57] MED LIST changes: -diltiazem-NS 100mg/100ml 100 ML IV PRN
[2024-03-14 17:26] LABS: BASOPHILS % (AUTO) 0.4 % (0-1); EOSINOPHILS # (AUTO) 0.4 X10'3 (0-0.9); EOSINOPHILS % (AUTO) 4.1 % (0-6); HEMATOCRIT 38.4 % (35.0-45.0); HEMOGLOBIN 11.9 g/dl (12.0-16.0); LYMPHOCYTES % (AUTO) 10.9 % (21-51); MEAN CORPUSCULAR HEMOGLOBIN 24.5 PG (27.0-31.0); MEAN CORPUSCULAR VOLUME 79.1 FL (78-98); MEAN PLATELET VOLUME 7.1 FL (7.4-10.4); MONOCYTES # (AUTO) 0.4 X10'3 (0-0.9); MONOCYTES % (AUTO) 4.7 % (2-12); NEUTROPHILS # (AUTO) 7.3 X10'3 (1.8-7.7); NEUTROPHILS % (AUTO) 79.9 % (42-75); PLATELET COUNT 142 X10'3 (140-440); RED BLOOD COUNT 4.86 X10'6 (4.20-5.60); WHITE BLOOD COUNT 9.2 X10'3 (4.5-11.0)
[2024-03-14 17:33] LABS: ALANINE AMINOTRANSFERASE 20 U/L (12-78); ALBUMIN/GLOBULIN RATIO 0.7 (1.1-1.5); ALKALINE PHOSPHATASE 93 IU/L (46-116); ANION GAP 7 (8-16); ASPARTATE AMINO TRANSFERASE 18 U/L (10-37); BILIRUBIN,TOTAL 0.7 MG/DL (0.1-1.0); BLOOD UREA NITROGEN 33 MG/DL (7-18); BUN/CREATININE RATIO 6.7 (10.0-20.0); CALCIUM 9.6 MG/DL (8.5-10.1); CHLORIDE 101 MMOL/L (99-107); CREATININE 4.91 MG/DL (0.40-0.90); GLUCOSE 120 MG/DL (70-104); POTASSIUM 5.4 MMOL/L (3.5-5.1); SODIUM 136 MMOL/L (135-145); TOTAL PROTEIN 7.6 G/DL (6.4-8.2); eCRCL 9 ML/MIN; eGFR 9 ML/MIN
[2024-03-14 17:44] LABS: ANISOCYTOSIS 2+; MICROCYTOSIS 1+; PLATELET ESTIMATE NORMAL; POIKILOCYTOSIS FEW
[2024-03-14 18:10] LABS: PRO BRAIN NATRIURETIC PEPTIDE > 30000 PG/ML (0-125)
[2024-03-14 21:22] VITALS: BP 150/59; PULSE 63; RESP 16; TEMP 98; O2SAT 98
== END 2024-03-14 21:24 | disposition home or self-care (01) ==
LOC: ER 16:57
DX: I13.2 Hypertensive heart and chronic kidney disease with heart failure and with stage 5 chronic kidney disease, or end stage renal disease (principal); I50.9 Heart failure, unspecified; N18.6 End stage renal disease; E11.22 Type 2 diabetes mellitus with diabetic chronic kidney disease; Z79.899 Other long term (current) drug therapy; Z79.4 Long term (current) use of insulin; Z87.440 Personal history of urinary (tract) infections; Z98.51 Tubal ligation status; Z99.2 Dependence on renal dialysis
CPT/HCPCS: 36415; 71045; 80053; 83880; 84484; 85008; 85025; 93005; 99285; A4615

== ENCOUNTER 2025-03-31 20:09 | Emergency (ER) | payer MEDICARE, MEDICAID ==
[~2025-03-31] VITALS: Ht 144.8 cm; Wt 102.0 kg
[2025-03-31 21:00] LABS: MEAN PLATELET VOLUME 7.3 FL (7.4-10.4); RED CELL DISTRIBUTION WIDTH 16.6 % (11.5-14.5)
[2025-03-31 21:27] LABS: CREATININE 4.23 MG/DL (0.40-0.90); TOTAL CARBON DIOXIDE 30.0 MMOL/L (24-32); eCRCL 8 ML/MIN; eGFR 11 ML/MIN
--- NOTE | 2025-03-31 22:55 | Physician Documentation ---
History of Present Illness ~ Chief Complaint: Flank Pain Stated Complaint: POSSIBLE INFECTION Time Seen by MD: 22:51 HPI Patient presents to the emergency room for evaluation of right-sided lower back pain. Onset of symptoms last few days. Taken occasional Tylenol for symptoms. No fevers. Reports history of urinary tract infections concerned that this may be the cause. Patient does have end-stage renal disease on dialysis scheduled Friday. No history of kidney stones. Pain is intermittent Medication Reconciliation Allergies: Coded Allergies: No Known Allergies (Unverified , 03/31/25) Scheduled Calcium Acetate (Calcium Acetate), 1 CAP PO TID, (Reported) Diltiazem HCl (Dilt-Xr), 1 CAP PO HS, (Reported) Docusate Sodium (Docusate Sodium), 100 MG PO BID Folic Acid/Vitamin B Comp W-C (Triphrocaps Softgel), 1 CAP PO DAILY, (Reported) Insulin Glargine,Hum.rec.anlog* (Lantus*), 0 UNIT SQ HS Insulin Lispro (Humalog), 0 UNITS SQ HMO Levothyroxine Sodium (Levothyroxine Sodium), 1.5 TAB PO DAILY, (Reported) Linezolid (Linezolid), 1 TAB PO Q12H Sevelamer Carbonate (Renvela), 2 TAB PO TIDWM, (Reported) Sodium Zirconium Cyclosilicate (Lokelma), 1 PACKET PO TuThSaSun, (Reported) Scheduled PRN Bisacodyl (Bisacodyl), 10 MG RC Q24H PRN for constipation Dextrose 50%-Water (Dextrose 50%-Water Syringe), 25 ML IV Q15M PRN for Mild to Moderate Hypoglycemia Dextrose 50%-Water (Dextrose 50%-Water Syringe), 50 ML IV Q15M PRN for Severe Hypoglycemia & IVaccess Glucagon,Human Recombinant (Glucagen), 1 MG SUBCUT Q15M PRN for Severe Hypoglycem NO IV Access Past Medical History Past Medical History: Hypertension, Bronchitis, Chronic Kidney Disease, Dialysis, Hernia, UTI, Diabetes, Thyroid (unspecified) Past Surgical History: tubal ligation, other Other Past Surgical History: 5 hernia repairs. Patient History: FH: diabetes mellitus MOTHER FH: hypertension brothers brothers Unknown per family , no prior PKD Hx Alcohol Use: None Drug Use: none Lives with: Spouse, Family Lives In: Home Review of Systems ROS All review of systems negative except as per HPI Physical Exam Vital Signs: Heart Rate: 56, Respiratory Rate: 15, BP: 171/71, Pulse Oximetry: 100, Weight: 102.000 Physical Exam General: Patient is awake, alert, oriented x4 in no acute distress and well appearing.~ Head: Normocephalic and atraumatic. Eyes: Conjunctival normal. EOMI. PERRL. ENT: Mucous membranes moist. Neck: Supple, trachea is midline. Chest: Clear to auscultation bilaterally without rales, rhonchi, or wheezes. There is no accessory muscle use or retractions. Cardiac: RRR without murmurs, gallops, or rubs. Abd: Soft, nondistended, nontender, with normoactive bowel sounds. No guarding, rebound, or rigidity. Back: Positive right-sided CVA tenderness to palpation Progress Results/Orders Results/Orders Orders - SAEID PARR MD Cult Urine + [place] Ct (03/31/25 23:56) Cephalexin Capsule (Keflex Capsule) (04/01/25 00:00) Completed Orders - SAEID PARR MD Hcg, Ur Ql (03/31/25 20:38) Cbc/Diff (03/31/25 20:38) BMP (03/31/25 20:38) Lipase (03/31/25 20:38) CMP (03/31/25 20:38) Procalcitonin (03/31/25 20:38) Acetaminophen 325mg Tablet (Tylenol Tabl (03/31/25 23:05) Ua W/Microscopic, Cult If Ind (03/31/25 23:01) Medications Received in ER Medications (Trade) Dose Ordered Sig/Jose Route PRN Reason Start Time Stop Time Status Last Admin Dose Admin (Tylenol tablet) 650 mg ONCE ONCE PO 03/31/25 23:05 03/31/25 23:06 DC 03/31/25 23:48 650 MG Vital Signs 03/31/25 03/31/25 03/31/25 20:33 23:05 23:07 Temp 98.1 Pulse 56 49 Resp 15 14 14 B/P (MAP) 171/71 154/55 (88) Pulse Ox 100 100 Laboratory Tests Test 03/31/25 20:50 03/31/25 23:01 White Blood Count 5.9 Red Blood Count 4.45 Hemoglobin 11.4 L Hematocrit 34.9 L Mean Corpuscular Volume 78.6 Mean Corpuscular Hemoglobin 25.7 L Mean Corpuscular Hemoglobin Concent 32.7 L Red Cell Distribution Width 16.6 H Platelet Count 136 L Mean Platelet Volume 7.3 L Neutrophils (%) (Auto) 65.8 Lymphocytes (%) (Auto) 21.1 Monocytes (%) (Auto) 6.4 Eosinophils (%) (Auto) 5.7 Basophils (%) (Auto) 1.0 Neutrophils # (Auto) 3.9 Lymphocytes # (Auto) 1.2 Monocytes # (Auto) 0.4 Eosinophils # (Auto) 0.3 Basophils # (Auto) 0.1 CBC Comment Sodium Level 134 L Potassium Level 5.9 H Chloride Level 98 L Carbon Dioxide Level 30.0 Anion Gap 6 L Blood Urea Nitrogen 37 H Creatinine 4.23 H Estimated GFR/1.73 m2 11 BUN/Creatinine Ratio 8.7 L Glucose Level 126 H Calcium Level 9.5 Total Bilirubin 0.4 Aspartate Amino Transf (AST/SGOT) 9 L Alanine Aminotransferase (ALT/SGPT) 6 L Alkaline Phosphatase 59 Total Protein 7.6 Albumin 3.1 L Globulin 4.5 H Albumin/Globulin Ratio 0.7 L Lipase 86 H Procalcitonin 0.09 Chemistry Comments Urine Specimen Description Non-specified Urine Color Straw Urine Clarity Cloudy Urine pH 8.5 Urine Specific [place] 1.020 Urine Protein >=300 H Urine Glucose (UA) Negative Urine Ketones Negative Urine Occult Blood Large H Urine Nitrite Negative Urine Bilirubin Negative Urine Urobilinogen 0.2 Urine Leukocyte Esterase Large H Urine RBC 3-10 Urine WBC 10-20 H Urine WBC Clumps Moderate Urine Squamous Epithelial Cells Moderate Urine Renal Cells Few Urine Bacteria 4+ Urine Mucus Few Urine Culture Indicated Indicated Volume Urine Centrifuged 5 ml Urine HCG, Qualitative Negative Urine Comment Low volume Medical Decision Making Additional information obtaine: old records Findings Patient presents to the emergency room with flank pain as per HPI. Differential s include but are not limited to musculoskeletal pain, pyelonephritis, aortic pathology, kidney stone. Compared to previous hematuria has decreased and he had not believe patient is CVA tenderness represents kidney stone but rather pyelonephritis and we will treat her as such. ER precautions discussed. No symptoms are intermittent I do not feel her back pain represents aortic pa thology. Diff Dx GI Bleed:Consideration: Include: AE fistula, Angiodysplasia, Bleeding diathesis, Blood loss anemia, Carcinoma, Diverticulosis, Diverticulitis, Esophageal varicies, Esophagitis, Gastritis, Gastroenteritis, Inflammatory BD, Chary-Maciel syndrome, Meckel's diverticulum, PUD, Other Diff Dx Pain:Considerations: Include: AAA, -Complete, - Incomplete, -Inevitable, -Missed, -Threatened, Abruptio placentae, Angina/VT, Aortic dissection, Appendicitis, Bowel obstruction, Cholangitis, Cholecystitis, Cholelithasis, Constipation, Diverticular disease, Dysmenorrhea, Ectopic , Esophageal rupture, Esophagitis, Gastritis/PUD, Gastroenteritis, GI hemorrhage, Hernia, Hepatitis, Inflammatory BD, Ischemic bowel, Mass, Ovarian cyst/torsion, Pancreatitis, PID, Porphyria, Trauma, intraabdominal, Urinary obstruction, Urinary tract infection, Urolithiasis, Other Diff Dx N/V/D:Considerations: Include: Appendicitis, Bowel obstruction, Dehydration, DKA, Diarrhea - bacterial, Diarrhea - parasitic, Diarrhea - viral, Diverticulitis, Diverticulosis, Drug toxicity, Electrolyte imbalance, Food poisoning, Gastroenteritis, GE reflux, GI bleed, Hepatitis, Hernia, Hypovolemia, Hypotension, Inflammatory BD, Impaction, Malnutrition, Pancreatitis, , PUD, Renal failure, Urolithiasis, Urinary obstruction, UTI, Other Diff Dx Rectal:Considerations: Include: Fissure, Fistula, Foreign body, Impaction, Perirectal abscess, Rectal prolapse, Subcutaneous abscess, Thrombosed hemorrhoid, Ulcer, UTI, Other Departure Disposition: 01 HOME / SELF CARE / HOMELESS Impression: Primary Impression: Acute pyelonephritis Condition: Stable Discharge Instructions: Pyelonephritis, Adult Referrals: NO PRIMARY CARE PROVIDER (PCP) Prescriptions Cephalexin*Monohydrate* (Keflex*) 500 Mg Capsule 1 CAP PO Q12H for 10 Days, #20 CAP Prov: SAEID PARR MD 04/01/25 Signature Scribe Signature: No scribe Attestation: The note accurately reflects work and decisions made by me.Saeid Parr MD 04/01/25 00:03 SAEID PARR MD Mar 31, 2025 22:55
[2025-03-31 23:36] LABS: URINE HCG NEGATIVE (NEG)
[2025-03-31 23:44] LABS: LEUKOCYTE ESTERASE ,URINE LARGE (Neg); NITRITES, URINE NEGATIVE (Neg); OCCULT BLOOD,URINE LARGE (Neg)
[2025-03-31 23:52] LABS: UA COLLECTION TYPE NON-SPECIFIED
[2025-03-31 23:55] LABS: MUCUS STRANDS FEW /LPF (Neg); SQUAMOUS EPITHELIAL CELL,UR MODERATE /LPF (FEW); WBC CLUMPS,URINE MODERATE /HPF (NEGATIVE)
[2025-03-31 23:56] LABS: RENAL CELLS, URINE FEW /HPF
[2025-04-01] MEDS ORDERED: CEPH-585 PO (00:02)
[2025-04-01 00:22] VITALS: BP 126/60; PULSE 61; RESP 16; TEMP 98.1; O2SAT 100
== END 2025-04-01 00:24 | disposition home or self-care (01) ==
LOC: ER 20:10
DX: N10 Acute pyelonephritis (principal); E11.22 Type 2 diabetes mellitus with diabetic chronic kidney disease; I12.0 Hypertensive chronic kidney disease with stage 5 chronic kidney disease or end stage renal disease; N18.6 End stage renal disease; Z98.51 Tubal ligation status; Z87.440 Personal history of urinary (tract) infections; Z79.899 Other long term (current) drug therapy
CPT/HCPCS: 36415; 80053; 81001; 81025; 83690; 84145; 85025; 87077; 87088; 87186; 99283

== ENCOUNTER 2025-04-04 13:22 | Emergency (ER) | payer MEDICARE, MEDICAID ==
[~2025-04-04] VITALS: Ht 144.8 cm; Wt 95.2 kg
[~2025-04-04 13:22] MED LIST changes: +CEPH-585 PO
[2025-04-04 13:24] VITALS: TEMP 97.8
[2025-04-04 13:56] LABS: MEAN PLATELET VOLUME 7.3 FL (7.4-10.4); RED CELL DISTRIBUTION WIDTH 16.7 % (11.5-14.5)
[2025-04-04 14:16] LABS: CREATININE 2.50 MG/DL (0.40-0.90); TOTAL CARBON DIOXIDE 33.4 MMOL/L (24-32); eCRCL 14 ML/MIN; eGFR 20 ML/MIN
--- NOTE | 2025-04-04 15:06 | Physician Documentation ---
History of Present Illness General Chief Complaint: Flank Pain Stated Complaint: INFECTION Time Seen by MD: 15:06 Primary Medical Doctor: jeyson medley md Mode of Arrival: POV History of Present Illness Initial Comments 64-year-old female with end-stage renal disease who was on dialysis and had her full dialysis today, complains of right flank and back pain for two weeks. The patient was seen in the emergency department proximally five days ago and found to have a urinary tract infection the patient was placed on Keflex. Family states the patient is not getting any better she continues to have back pain which is she states his 8/10. She denies any nausea she denies any fevers or chills. Medication Reconciliation Allergies: Coded Allergies: No Known Allergies (Unverified , 03/31/25) Scheduled Calcium Acetate (Calcium Acetate), 1 CAP PO TID, (Reported) Cephalexin*Monohydrate* (Keflex*), 1 CAP PO Q12H Ciprofloxacin HCl (Ciprofloxacin HCl), 1 TAB PO DAILY Diltiazem HCl (Dilt-Xr), 1 CAP PO HS, (Reported) Docusate Sodium (Docusate Sodium), 100 MG PO BID Folic Acid/Vitamin B Comp W-C (Triphrocaps Softgel), 1 CAP PO DAILY, (Reported) Insulin Glargine,Hum.rec.anlog* (Lantus*), 0 UNIT SQ HS Insulin Lispro (Humalog), 0 UNITS SQ HMO Levothyroxine Sodium (Levothyroxine Sodium), 1.5 TAB PO DAILY, (Reported) Linezolid (Linezolid), 1 TAB PO Q12H Sevelamer Carbonate (Renvela), 2 TAB PO TIDWM, (Reported) Sodium Zirconium Cyclosilicate (Lokelma), 1 PACKET PO TuThSaSun, (Reported) Scheduled PRN Bisacodyl (Bisacodyl), 10 MG RC Q24H PRN for constipation Dextrose 50%-Water (Dextrose 50%-Water Syringe), 25 ML IV Q15M PRN for Mild to Moderate Hypoglycemia Dextrose 50%-Water (Dextrose 50%-Water Syringe), 50 ML IV Q15M PRN for Severe Hypoglycemia & IVaccess Glucagon,Human Recombinant (Glucagen), 1 MG SUBCUT Q15M PRN for Severe Hypoglycem NO IV Access Past Medical History Past Medical History: Hypertension, Bronchitis, Chronic Kidney Disease, Dialysis, Hernia, UTI, Diabetes, Thyroid (unspecified) Past Surgical History: tubal ligation, other Other Past Surgical History: 5 hernia repairs. Smoking: Non-Smoker, Secondhand Alcohol Use: None Drug Use: none Lives with: Spouse, Family Lives In: Home Review of Systems All Other Systems at this time: Reviewed and Negative Physical Exam Physical Exam Vital Signs: Temperature: 97.8, Source: Oral, Heart Rate: 58, Respiratory Rate: 18, BP: 136/57, Pulse Oximetry: 92, Weight: 95.200 Oxygen Flow Rate: 0 Physical Exam VITALS: Reviewed and as above. GENERAL: Alert, no apparent distress. HEENT: Normocephalic, atraumatic, PERRL, EOMI, dry mucosa, no erythema RESPIRATORY: Lungs clear, normal breath sounds, no respiratory distress. CHEST: No accessory muscle use, no retractions CV: Regular rate, rhythm, no edema, no murmur, No: JVD GI: Slight right upper and right flank tenderness, bowels sounds present, no rebound, guarding, or rigidity BACK: No CVA tenderness, or swelling MUSCULOSKELETAL: No deformities, no edema SKIN: Warm and dry, no rash NEURO: Oriented x4, No motor or sensory deficit PSYCH: Normal mood and affect, no agitation Progress Results/Orders Results/Orders Orders - RIPHU JONES MD Ct Abdomen Pelvis (04/04/25 15:59) Cult Urine + [place] Ct (04/04/25 16:24) Completed Orders - PHU GAY MD Hcg, Ur Ql (04/04/25 13:28) Cbc/Diff (04/04/25 13:28) BMP (04/04/25 13:28) Lipase (04/04/25 13:28) CMP (04/04/25 13:28) Procalcitonin (04/04/25 15:18) Acetaminophen 325mg Tablet (Tylenol Tabl (04/04/25 15:20) Ct Abdomen Pelvis (04/04/25 15:59) Ciprofloxacin Tablet (Cipro Tablet) (04/04/25 15:50) Ua W/Microscopic, Cult If Ind (04/04/25 15:45) Vital Signs 04/04/25 04/04/25 04/04/25 04/04/25 13:24 14:42 15:31 16:37 Temp 97.8 Pulse 57 58 51 60 Resp 16 18 22 20 B/P (MAP) 129/53 136/57 (83) 144/57 (86) 123/50 (74) Pulse Ox 99 92 100 100 O2 Flow Rate 0 0 0 0 Laboratory Tests Test 04/04/25 13:38 04/04/25 15:23 04/04/25 15:45 White Blood Count 5.7 Red Blood Count 4.54 Hemoglobin 11.4 L Hematocrit 35.8 Mean Corpuscular Volume 78.9 Mean Corpuscular Hemoglobin 25.2 L Mean Corpuscular Hemoglobin Concent 32.0 L Red Cell Distribution Width 16.7 H Platelet Count 129 L Mean Platelet Volume 7.3 L Neutrophils (%) (Auto) 76.2 H Lymphocytes (%) (Auto) 13.1 L Monocytes (%) (Auto) 5.4 Eosinophils (%) (Auto) 4.8 Basophils (%) (Auto) 0.5 Neutrophils # (Auto) 4.4 Lymphocytes # (Auto) 0.8 L Monocytes # (Auto) 0.3 Eosinophils # (Auto) 0.3 Basophils # (Auto) 0.0 CBC Comment Sodium Level 135 Potassium Level 4.1 Chloride Level 94 L Carbon Dioxide Level 33.4 H Anion Gap 8 Blood Urea Nitrogen 15 Creatinine 2.50 H Estimated GFR/1.73 m2 20 BUN/Creatinine Ratio 6.0 L Glucose Level 218 H Calcium Level 8.9 Total Bilirubin 0.4 Aspartate Amino Transf (AST/SGOT) 15 Alanine Aminotransferase (ALT/SGPT) 9 L Alkaline Phosphatase 64 Total Protein 7.4 Albumin 2.9 L Globulin 4.5 H Albumin/Globulin Ratio 0.6 L Lipase 24 Chemistry Comments Procalcitonin 0.05 Urine Specimen Description Non-specified Urine Color Yellow Urine Clarity Cloudy Urine pH 8.5 Urine Specific [place] 1.015 Urine Protein >=300 H Urine Glucose (UA) Negative Urine Ketones Negative Urine Occult Blood Moderate H Urine Nitrite Negative Urine Bilirubin Negative Urine Urobilinogen 0.2 Urine Leukocyte Esterase Moderate H Urine RBC 3-10 Urine WBC 30-50 H Urine Squamous Epithelial Cells Moderate Urine Bacteria 3+ Urine Culture Indicated Indicated Volume Urine Centrifuged 10 ml Urine HCG, Qualitative Negative Urine Comment Microbiology Date/Time Source Procedure Growth Status 04/04/25 16:24 Urine Nonspecified Urine Culture - Preliminary NO GROWTH AFTER 1 DAY Resulted EKG/XRAY/CT/US/VASC/MRI CT : Impression ndication: back pain Technique: CT axial images of the abdomen and pelvis are obtained without con trast. Coronal and sagittal reformats were obtained. Radiation Dose Information: CTDI volume is 29 mGy. Dose-length product is 2003 mGy*cm Comparison: CT CT ABDOMEN PELVIS on DOS: 07/02/23 FINDINGS: There is limited interpretation of the abdomen and pelvis without administration of intravenous contrast. Small left and tiny right pleural effusions. Coronary artery calcification disease. Bilateral atelectasis. The adrenal glands There not well characterized. Spleen, pancreas unremarkable in shape. Extensive cystic disease of the bilateral kidneys consistent with polycystic kidney disease. Many of the cysts demonstrate calcification/peripheral calcifications. Right renal lower pole cystic lesion with hyperdense component measuring 4.1 cm, axial image 80. Right renal midpole cystic lesion with hyperdense component measuring 3.8 cm. Left renal lower pole cystic lesion with hyperdense component measuring 4.5 cm, axial image 74. There are hepatic cysts present as well which likely represent sequela of poly cystic disease. Cholelithiasis. Dilatation of left intrahepatic ducts up to 12 mm. Stomach is partially distended. The small bowel loops are moderately distended. Moderate volume stool within the colon. Normal appendix. Abdominal aortic atherosclerotic disease. Periaortic/retroperitoneal lymphadenopathy measuring up to 1.9 cm. Bladder nondistended. No free pelvic fluid. No inguinal lymphadenopathy. Moderate bilateral sacroiliac degenerative joint disease. Moderate thoracolumbar degenerative disc disease. IMPRESSION: Limited evaluation without contrast. Moderate volume stool in the colon. Extensive renal cystic disease consistent with polycystic kidney disease. There is also presence of polycystic disease within the liver, less pronounced within the kidney. Hyperdense lesions within the bilateral renal cystic lesions as described above. Recommend MRI abdomen with and without contrast to further evaluate exclude any type of solid mass/ neoplastic process complicating the cysts. Cholelithiasis. Small left and tiny right pleural effusions. Atherosclerotic disease. Coronary artery calcification disease.m Retroperitoneal lymphadenopathy , which can be secondary to infectious, inflammatory, neoplastic etiologies. Dilated intrahepatic ducts on the left which measure up to 12 mm. This can be further evaluated with MRCP/ MRI abdomen with and without contrast. Other findings as described. Electronically Signed by:ELYSSA BRANDT MD Date & Time: 04/04/251622 Dictated by: ELYSSA BRANDT MD Dictation date and time: 04/04/251622 Primary Care Provider: NO PRIMARY CARE PROVIDER cc: PHU GAY MD ~ Medical Decision Making Additional information obtaine: old records Findings 64-year-old female with flank pain and a urinary tract infection the cultures fr om her last visit demonstrate two forms of Enterococcus and Klebsiella all of which are not sensitive to Keflex, the patient would benefit from a change in her medications to Cipro as they are all sensitive to Cipro, I discussed this with the oil well driller on-call Dr. Santoyo he is advised the patient should receive 250 mg of Cipro a day and for that 250 mg on the day of dialysis to occur after she gets her dialysis. CT scan of the abdomen failed to demonstrate any acute pathology. The patient's CT imaging was independently reviewed by me it showed polycystic kidney disease no evidence of kidney stone no evidence of cholecystitis and no evidence of aortic aneurysm. I have reviewed the radiologist's interpretation as well the patient's pulse oximetry was inte rpreted as adequate normal the patient will be discharged Differential Diagnosis UTI pyelonephritis renal colic biliary tract disease musculoskeletal back pain Departure Disposition: HOME / SELF CARE / HOMELESS Impression: Primary Impression: Acute urinary tract infection Discharge Instructions: Urinary Tract Infection, Adult Referrals: NO PRIMARY CARE PROVIDER (PCP) Prescriptions Ciprofloxacin HCl (Ciprofloxacin HCl) 250 Mg Tablet 1 TAB PO DAILY for 7 Days, #7 TAB Take one tablet daily, on dialysis days take the tablet after dialysis Prov: PHU GAY MD 04/04/25 Signature Scribe Signature: The note accurately reflects work and decisions made by me.Phu Gay MD 04/05/25 09:37 Attestation: The note accurately reflects work and decisions made by me.Phu Gay MD 04/05/25 09:37 PHU GAY MD Apr 04, 2025 15:06
--- NOTE | 2025-04-04 15:56 | CONSULTATION REPORT ---
Consult Providers to CC ~ History of Present Illness Reason for Admit\Complaint: Flank Pain History of Present Illness This is a 64-year-old woman with a history of end-stage renal disease on hemodialysis who presents with persistent right flank and back pain for the past two weeks. She was evaluated in the emergency department five days ago, diagnosed with a urinary tract infection, and started on cephalexin. Despite completing several days of antibiotics, she continues to experience significant back pain, rated as 8 out of 10, without improvement. She denies associated symptoms such as fever, chills, or nausea. Her vital signs are stable, with a temperature of 97.8F, heart rate of 57, respiratory rate of 16, blood pressure of 129/53, and oxygen saturation of 99% on room air. Laboratory studies reveal a normal white blood cell count (5.7), mild anemia (hemoglobin 11.4), mild thrombocytopenia (platelets 129), potassium 4.1, and elevated glucose at 218. The lack of clinical improvement raises concern for persistent or resistant urinary tract infection, possibly complicated by her immunocompromised state due to ESRD and dialysis. Given her ongoing symptoms and suboptimal response to cephalexin, escalation of antibiotic therapy is warranted. Ciprofloxacin is an appropriate alternative, with dosing adjusted for her renal function and dialysis schedule. Close monitoring for clinical response and potential adverse effects is indicated, along with consideration for repeat urine cultures and further evaluation if symptoms persist or worsen. Allergies: Coded Allergies: No Known Allergies (Unverified , 03/31/25) Home Medications Home Medications Active Keflex* (Cephalexin HCl) 500 Mg Capsule 1 Cap PO Q12H 10 Days Linezolid 600 Mg Tablet 1 Tab PO Q12H 7 Days Dextrose 50%-Water Syringe (Dextrose) 50 % Disp.syrin 50 Ml IV Q15M PRN 7 Days Dextrose 50%-Water Syringe (Dextrose) 50 % Disp.syrin 25 Ml IV Q15M PRN 7 Days Glucagen (Glucagon,Human Recombinant) 1 Mg Kit 1 Mg SUBCUT Q15M PRN 7 Days Humalog (Insulin Lispro) 100 Unit/Ml Vial 0 Units SQ HMO 10 Days per sliding scale Lantus* (Insulin Glargine) 100 Unit/1 Ml Vial 0 Unit SQ HS 10 Days . Docusate Sodium 100 Mg Caps 100 Mg PO BID 30 Days Bisacodyl 10 Mg Supp.rect 10 Mg RC Q24H PRN 10 Days Reported Triphrocaps Softgel (Folic Acid/Vitamin B Comp W-C) 1 Mg Capsule 1 Cap PO DAILY Calcium Acetate 667 Mg Capsule 1 Cap PO TID Dilt-Xr (Diltiazem HCl) 180 Mg Cap.er.deg 1 Cap PO HS Levothyroxine Sodium 50 Mcg Tablet 1.5 Tab PO DAILY Lokelma (Sodium Zirconium Cyclosilicate) 10 Gram Powd.pack 1 Packet PO TUTHSASUN Renvela (Sevelamer Carbonate) 800 Mg Tablet 2 Tab PO TIDWM Family History Family History: FH: diabetes mellitus MOTHER FH: hypertension brothers brothers Unknown per family , no prior PKD Hx Exam Vitals: Vital Signs Date Time Temp Pulse Resp B/P (MAP) Pulse Ox O2 Delivery O2 Flow Rate FiO2 04/04/25 15:31 51 22 144/57 (86) 100 0 04/04/25 13:24 97.8 Diagnostic Data Last Recorded Lab Results: 04/04/25 1338 04/04/25 1338 Additional Plan A 64-year-old woman with end-stage renal disease on hemodialysis presents with persistent right flank and back pain (810) for two weeks. She was previously seen in the ED five days ago, diagnosed with a urinary tract infection, and started on cephalexin. Despite treatment, her symptoms have not improved. She denies fever, chills, or nausea. Vitals are stable: T 97.8F, HR 57, RR 16, BP 129/53, SpO? 99% on room air. Labs show WBC 5.7, Hgb 11.4, platelets 129, K 4.1, glucose 218. The clinical picture suggests persistent or refractory UTI in the setting of ESRD on dialysis. UTI Treatment Recommendation: Switch to ciprofloxacin hydrochloride (Cipro) due to lack of response to cephalexin and ongoing symptoms. Ciprofloxacin Dosing and Schedule for ESRD on Hemodialysis: Ciprofloxacin 250 mg PO every 24 hours Administer after dialysis on dialysis days Monitoring and Follow-up: Monitor for symptom improvement (pain, urinary symptoms) Watch for adverse effects: [employer] changes, GI upset, tendon pain Monitor for QT prolongation, especially if on other QT-prolonging agents Check blood glucose, especially with history of diabetes Repeat urine culture if symptoms persist or worsen Follow up after completion of antibiotic course or sooner if symptoms worsen Adjust antibiotic regimen based on culture and sensitivity results Pharmacokinetics of fluoroquinolones in ESRD-HD Ciprofloxacin: Primarily renally excreted; reduced clearance and prolonged half- life in ESRD-HD, increasing accumulation risk Levofloxacin: Also renally excreted; reduced clearance and prolonged half-life in ESRD-HD, requiring dose adjustment Fluoroquinolones require dose adjustments in ESRD-HD because of reduced renal clearance and the risk of accumulation Ciprofloxacin should be dosed after dialysis (027726 mg PO every 24 hours or 961119 mg IV every 24 hours), and levofloxacin should be dosed every 48 hours (500 mg loading, then 250 mg every 48 hours for low-dose regimens; 750 mg loading, then 500 mg every 48 hours for high-dose regimens) with post-dialysis administration Monitor for [employer] and QT effects, and avoid use in patients with QT risk factors or torsades risk QT prolongation: Monitor ECG and electrolytes; avoid use with other QT- prolonging drugs or in patients with torsades risk Tendon rupture: Increased risk, especially with corticosteroids or in elderly; sexual assault counsellor patients on tendon pain Hypoglycemia: Monitor blood glucose, especially in diabetes or on insulin/sulfonylureas MICHELE KU III, DO Apr 04, 2025 15:56
[2025-04-04 16:04] LABS: URINE HCG NEGATIVE (NEG)
[2025-04-04 16:16] LABS: LEUKOCYTE ESTERASE ,URINE MODERATE (Neg); NITRITES, URINE NEGATIVE (Neg); OCCULT BLOOD,URINE MODERATE (Neg)
[2025-04-04 16:19] LABS: UA COLLECTION TYPE NON-SPECIFIED
--- NOTE | 2025-04-04 16:20 | RADIOLOGY REPORT ---
Indication: back pain Technique: CT axial images of the abdomen and pelvis are obtained without contrast. Coronal and sagittal reformats were obtained. Radiation Dose Information: CTDI volume is 29 mGy. Dose-length product is 2003 mGy*cm Comparison: CT CT ABDOMEN PELVIS on DOS: 07/02/23 FINDINGS: There is limited interpretation of the abdomen and pelvis without administration of intravenous contrast. Small left and tiny right pleural effusions. Coronary artery calcification disease. Bilateral atelectasis. The adrenal glands There not well characterized. Spleen, pancreas unremarkable in shape. Extensive cystic disease of the bilateral kidneys consistent with polycystic kidney disease. Many of the cysts demonstrate calcification/peripheral calcifications. Right renal lower pole cystic lesion with hyperdense component measuring 4.1 cm, axial image 80. Right renal midpole cystic lesion with hyp erdense component measuring 3.8 cm. Left renal lower pole cystic lesion with hyperdense component measuring 4.5 cm, axial image 74. There are hepatic cysts present as well which likely represent sequela of polycystic disease. Cholelithiasis. Dilatation of left intrahepatic ducts up to 12 mm. Stomach is partially distended. The small bowel loops are moderately distended. Moderate volume stool within the colon. Normal appendix. Abdominal aortic atherosclerotic disease. Periaortic/retroperitoneal lymphadenopathy measuring up to 1.9 cm. Bladder nondistended. No free pelvic fluid. No inguinal lymphadenopathy. Moderate bilateral sacroiliac degenerative joint disease. Moderate thoracolumbar degenerative disc disease. IMPRESSION: Limited evaluation without contrast. Moderate volume stool in the colon. Extensive renal cystic disease consistent with polycystic kidney disease. There is also presence of polycystic disease within the liver, less pronounced within the kidney. Hyperdense lesions within the bilateral renal cystic lesions as described above. Recommend MRI abdomen with and without contrast to further evaluate exclude any type of solid mass/ neoplastic process complicating the cysts. Cholelithiasis. Small left and tiny right pleural effusions. Atherosclerotic disease. Coronary artery calcification disease.m Retroperitoneal lymphadenopathy , which can be secondary to infectious, inflammatory, neoplastic etiologies. Dilated intrahepatic ducts on the left which measure up to 12 mm. This can be further evaluated with MRCP/ MRI abdomen with and without contrast. Other findings as described.
[2025-04-04 16:24] LABS: SQUAMOUS EPITHELIAL CELL,UR MODERATE /LPF (FEW)
[2025-04-04] MEDS: ciprofloxacin 250mg tablet PO ONE (16:27)
[2025-04-04] MEDS ORDERED: CIPR250T4 PO (16:29)
[2025-04-04 16:37] VITALS: BP 123/50; PULSE 60; RESP 20; O2SAT 100
== END 2025-04-04 16:47 | disposition home or self-care (01) ==
LOC: ER 13:22
DX: N39.0 Urinary tract infection, site not specified (principal); I12.0 Hypertensive chronic kidney disease with stage 5 chronic kidney disease or end stage renal disease; E11.22 Type 2 diabetes mellitus with diabetic chronic kidney disease; E11.65 Type 2 diabetes mellitus with hyperglycemia; N18.6 End stage renal disease; I25.10 Atherosclerotic heart disease of native coronary artery without angina pectoris; D64.9 Anemia, unspecified; Z79.899 Other long term (current) drug therapy; Z99.2 Dependence on renal dialysis; Z98.51 Tubal ligation status; Z87.440 Personal history of urinary (tract) infections; Z79.4 Long term (current) use of insulin
CPT/HCPCS: 36415; 74176; 80053; 81001; 81025; 83690; 84145; 85025; 87088; 99284; J7030